=== PATIENT | male | born 1960 | race African-American/Black ===

== ENCOUNTER 2016-05-29 10:29 | Emergency (ER) | payer SELFPAY ==
[2016-05-29] MEDS ORDERED: OXYCODONE-ACETAMINOPHEN 5-325 MG TABLET PO ONE (10:46)
--- NOTE | 2016-05-29 10:46 | ER Document Report ---
ED Medical Screen (RME) - General Stated Complaint: ANKLE PAIN Notes: 55 yo male c/o right ankle pain x 6 days. no trauma. no weight bearing tolerated. + swelling. no warmth. hx/o htn TRAVEL OUTSIDE OF THE [place] IN LAST 30 DAYS: No - Related Data Allergies/Adverse Reactions: No Known Allergies Allergy (Verified 02/20/15 11:28) Past Medical History - Past Medical History Cardiac Medical History: Reports: Hx Hypertension Past Surgical History: Reports: Hx Orthopedic Surgery - right hand - Immunizations Hx Diphtheria, Pertussis, Tetanus Vaccination: Yes Physical Exam - Vital signs Vitals: Temp Pulse Resp BP Pulse Ox 98.3 F 103 H 16 122/94 H 98 05/29/16 10:41 05/29/16 10:41 05/29/16 10:41 05/29/16 10:41 05/29/16 10:41 Course - Vital Signs Vital signs: Temp Pulse Resp BP Pulse Ox 98.3 F 103 H 16 122/94 H 98 05/29/16 10:41 05/29/16 10:41 05/29/16 10:41 05/29/16 10:41 05/29/16 10:41
[2016-05-29 11:24] LABS: ABSOLUTE EOSINOPHILS # (AUTO) 0.1 10^3/uL (0.0-0.6); ABSOLUTE LYMPHOCYTES (AUTO) 2.1 10^3/uL (0.5-4.7); ABSOLUTE MONOCYTES (AUTO) 1.1 10^3/uL (0.1-1.4); ABSOLUTE NEUT (AUTO) 6.8 10^3/uL (1.7-8.2); BASOPHILS % (AUTO) 0.3 % (0-2); EOSINOPHILS % (AUTO) 1.3 % (0-6); HEMATOCRIT 41.3 % (37.9-51.0); HEMOGLOBIN 14.8 g/dL (13.5-17.0); HGB HCT DIFFERENCE 3.1; MEAN CORPUSCULAR HEMOGLOBIN 30.9 pg (27.0-33.4); MEAN CORPUSCULAR HGB CONC 35.8 g/dL (32.0-36.0); MEAN CORPUSCULAR VOLUME 86 fl (80-97); MONOCYTES % (AUTO) 10.4 % (3-13); RED BLOOD COUNT 4.78 10^6/uL (4.35-5.55); RED CELL DISTRIBUTION WIDTH 14.3 % (11.5-14.0); WHITE BLOOD COUNT 10.2 10^3/uL (4.0-10.5)
[2016-05-29] MEDS ORDERED: DIPH/PERTUSS(ACELL)/TETANUS VAC/PF 0.5 ML SYR (>=10YO) IM ONE (11:24)
--- NOTE | 2016-05-29 11:26 | ER Document Report ---
HPI - HPI Patient complains to provider of: right ankle pain Onset: Other - 6 days Onset/Duration: Persistent, Worse Quality of pain: Sharp Pain Level: 5 Context: Patient complains of right medial ankle pain and swelling that developed gradually over the past 6 days. Patient states that he had a towel covering his ankle and was using a iron (clothing iron) to provide a make shift heat pack to his ankle. Patient states that the towel slipped and he part the medial aspect of his ankle. Patient complains of mild tenderness to the burn, increased tenderness to right medial ankle. Patient additionally complains of a rash to his right foot that he has had for the past month. He should has not used any topical medications [id number] to treat this rash. He shouldn't states that the rash is pruritic. Associated Symptoms: Other. denies: Fever Exacerbated by: Standing, Movement - Right ankle pain, Walking Relieved by: Denies Similar symptoms previously: No Recently seen / treated by doctor: No - ROS ROS below otherwise negative: Yes Systems Reviewed and Negative: Yes All other systems reviewed and negative - CONSTITUTIONAL Constitutional: DENIES: Fever, Chills - RESPIRATORY Respiratory: DENIES: Coughing - GASTROINTESTINAL Gastrointestinal: DENIES: Nausea - MUSCULOSKELETAL Musculoskeletal: REPORTS: Extremity pain - Right ankle, Swelling - DERM Skin Color: Normal Skin Problems: Burn, Rash Past Medical History - General Information source: Patient - Social History Smoking Status: Current Every Day Smoker Chew tobacco use (# tins/day): No Frequency of alcohol use: None Drug Abuse: None 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 IN LAST 30 DAYS: No - HEENT HEENT: Atraumatic, Normocephalic - NECK Neck: Normal Inspection, Supple - RESPIRATORY Respiratory: Breath Sounds Normal, No Respiratory Distress O2 Sat by Pulse Oximetry: 98 - CARDIOVASCULAR Cardiovascular: Regular Rate, Regular Rhythm, No Murmur Pulses: Normal: Dorsalis pedis - BACK Back: Normal Inspection - MUSCULOSKELETAL/EXTREMETIES Musculoskeletal/Extremeties: MAEW, Tender - Patient with tenderness to feel aspect of midfoot area of right foot, Edema. negative: Eccymosis - NEURO Level of Consciousness: Awake, Alert, Appropriate Motor/Sensory: No Motor Deficit - DERM Integumentary: Warm, Dry, Rash - Scaling rash to medial aspect of right foot Course - Vital Signs Vital signs: Temp Pulse Resp BP Pulse Ox 98.3 F 103 H 16 122/94 H 98 05/29/16 10:41 05/29/16 10:41 05/29/16 10:41 05/29/16 10:41 05/29/16 10:41 - Laboratory Result Diagrams: 05/29/16 10:55 Laboratory results interpreted by me: 05/29/16 12:48 Labs- Entire Visit 05/29/16 05/29/16 10:55 10:55 WBC 10.2 RBC 4.78 Hgb 14.8 Hct 41.3 MCV 86 MCH 30.9 MCHC 35.8 RDW 14.3 H Plt Count 338 Seg Neutrophils % 67.0 Lymphocytes % 21.0 Monocytes % 10.4 Eosinophils % 1.3 Basophils % 0.3 Absolute Neutrophils 6.8 Absolute Lymphocytes 2.1 Absolute Monocytes 1.1 Absolute Eosinophils 0.1 Absolute Basophils 0.0 ESR 24 H Uric Acid 8.8 H 05/29/16 22:05 Discharge - Discharge Clinical Impression: Burn Gout attack Qualifiers: Gout site: ankle Gout etiology: unspecified cause Laterality: right Qualified Code(s): M10.9 - Gout, unspecified Tinea pedis Qualifiers: Laterality: right Qualified Code(s): B35.3 - Tinea pedis Condition: Stable Disposition: HOME, SELF-CARE Instructions: Krishna ([facility]), Soap Cleansing ([facility]), Tetanus Immunization Given ( [facility]), Oral Narcotic Medication ([facility]), Gout Diet ([facility]), Gout ([facility]), Anti- Inflammatory Medication ([facility]) Additional Instructions: Return immediately for any new or worsening symptoms Followup with your primary care provider, call tomorrow to make a followup appointment Follow up with a celery tier for any continued skin problems Eat a diet low in purine to minimize gout attacks in the future. Prescriptions: Indomethacin [Indocin 50 Mg Capsule] 50 mg PO TID PRN #15 capsule PRN Reason: Ketoconazole [Nizoral] 1 applic TP DAILY #30 cream.gm. Oxycodone HCl/Acetaminophen [Percocet 5-325 mg Tablet] 1 - 2 tab PO ASDIR PRN # 20 tablet PRN Reason: Referrals: [facility] [Provider Group] - Follow up as needed MARISOL KEITH DO [ACTIVE STAFF] - Follow up as needed [facility] [Provider Group] - Follow up tomorrow
[2016-05-29] MEDS ORDERED: INDOMETHACIN 50 MG CAPSULE PO ONE (11:57)
[2016-05-29 12:01] LABS: ERYTHROCYTE SEDIMENTATION RATE 24 mm/hr (0-20)
[2016-05-29 13:12] VITALS: BP 148/95
== END 2016-05-29 13:20 | disposition home or self-care (01) ==
LOC: ER 10:29
DX: T25.011A Burn of unspecified degree of right ankle, initial encounter (principal); X15.8XXA Contact with other hot household appliances, initial encounter; Y93.89 Activity, other specified; M10.9 Gout, unspecified; B35.3 Tinea pedis; M25.571 Pain in right ankle and joints of right foot; F17.200 Nicotine dependence, unspecified, uncomplicated; I10 Essential (primary) hypertension
CPT/HCPCS: 99283; 90471; 36415; 84550; 85025; 85652; 90715; J3490

== ENCOUNTER 2016-08-02 14:46 | Emergency (ER) | payer OTHER ==
--- NOTE | 2016-08-02 15:37 | ER Document Report ---
ED Medical Screen (RME) - General Stated Complaint: FINGER PAIN Notes: Patient states he caught his left fifth finger and a reciprocating saw today. Patient states he thinks his tetanus is up-to-date. I have greeted and performed a rapid initial assessment of this patient. A comprehensive ED assessment and evaluation of the patient, analysis of test results and completion of the medical decision making process will be conducted by additional ED providers. TRAVEL OUTSIDE OF THE [place] IN LAST 30 DAYS: No - Related Data Allergies/Adverse Reactions: No Known Allergies Allergy (Verified 08/02/16 15:35) Past Medical History - Past Medical History Cardiac Medical History: Reports: Hx Hypertension Past Surgical History: Reports: Hx Orthopedic Surgery - right hand - Immunizations Hx Diphtheria, Pertussis, Tetanus Vaccination: Yes Physical Exam - Vital signs Vitals: Temp Pulse Resp BP Pulse Ox 98.9 F 69 19 152/86 H 97 08/02/16 15:07 08/02/16 15:07 08/02/16 15:07 08/02/16 15:07 08/02/16 15:07 - Extremities Notes: Sensation intact to left fifth finger. Dressing in place, finger is very tender to touch. Course - Vital Signs Vital signs: Temp Pulse Resp BP Pulse Ox 98.9 F 69 19 152/86 H 97 08/02/16 15:07 08/02/16 15:07 08/02/16 15:07 08/02/16 15:07 08/02/16 15:07
[2016-08-02] MEDS ORDERED: IBUPROFEN 600 MG TABLET PO ONE (16:24)
[2016-08-02] MEDS ORDERED: LIDOCAINE 1% INJ-PF (10 MG/ML) 30 ML SDV INJ ONE (16:26)
--- NOTE | 2016-08-02 16:31 | ER Document Report ---
ED Hand/Wrist Injury - General Chief Complaint: Finger Injury Stated Complaint: FINGER PAIN Notes: The patient is a 56-year-old male who presents with left fifth finger pain after he cut it on a saw. He noticed bleeding from the laceration. He received a tetanus shot last year. He is right-handed. He denies numbness, tingling or any other injuries. TRAVEL OUTSIDE OF THE [place] IN LAST 30 DAYS: No - Related Data Allergies/Adverse Reactions: No Known Allergies Allergy (Verified 08/02/16 15:35) Past Medical History - General Information source: Patient - Social History Smoking Status: Never Smoker Chew tobacco use (# tins/day): No Frequency of alcohol use: None Drug Abuse: None Family History: Reviewed & Not Pertinent Patient has suicidal ideation: No Patient has homicidal ideation: No - Past Medical History Cardiac Medical History: Reports: Hx Hypertension Renal/ Medical History: Denies: Hx Peritoneal Dialysis Past Surgical History: Reports: Hx Orthopedic Surgery - right hand - Immunizations Hx Diphtheria, Pertussis, Tetanus Vaccination: Yes Review of Systems - Review of Systems Notes: REVIEW OF SYSTEMS: CONSTITUTIONAL: -fevers, -chills EENT: -eye pain, -difficulty swallowing, -nasal congestion CARDIOVASCULAR:-chest pain, -syncope. RESPIRATORY: -cough, -SOB GASTROINTESTINAL: -abdominal pain, -nausea, -vomiting, -diarrhea GENITOURINARY: -dysuria, -hematuria MUSCULOSKELETAL: -back pain, -neck pain SKIN: +left distal finger laceration HEMATOLOGIC: -easy bruising or bleeding. LYMPHATIC: -swollen, enlarged glands. NEUROLOGICAL: -altered mental status or loss of consciousness, -headache, - neurologic symptoms PSYCHIATRIC: -anxiety, -depression. ALL OTHER SYSTEMS REVIEWED AND NEGATIVE. Physical Exam - Vital signs Vitals: Temp Pulse Resp BP Pulse Ox 98.9 F 69 19 152/86 H 97 08/02/16 15:07 08/02/16 15:07 08/02/16 15:07 08/02/16 15:07 08/02/16 15:07 - Notes Notes: PHYSICAL EXAMINATION: GENERAL: Well-appearing, well-nourished and in no acute distress. HEAD: Atraumatic, normocephalic. EYES: Pupils equal round and reactive to light, extraocular movements intact, sclera anicteric, conjunctiva are normal. ENT: nares patent, oropharynx clear without exudates. Moist mucous membranes. NECK: Normal range of motion, supple without lymphadenopathy LUNGS: Breath sounds clear to auscultation bilaterally and equal. No wheezes rales or rhonchi. HEART: Regular rate and rhythm without murmurs ABDOMEN: Soft, nontender, normoactive bowel sounds. No guarding, no rebound. No masses appreciated. EXTREMITIES: Left distal finger with 2 cm laceration, brisk capillary refill. Normal range of motion, no pitting or edema. No cyanosis. NEUROLOGICAL: Cranial nerves grossly intact. Normal speech, normal gait. Normal sensory, motor, and reflex exams. PSYCH: Normal mood, normal affect. SKIN: 2 cm laceration over left 5th distal finger. Course - Re-evaluation Re-evalutation: No fractures on x-ray. Laceration repaired tetanus up-to-date. Given return precautions and he understands. He will need removal of the sutures in 5 days. - Vital Signs Vital signs: Temp Pulse Resp BP Pulse Ox 98.6 F 92 20 121/83 98 08/02/16 17:11 08/02/16 17:11 08/02/16 17:11 08/02/16 17:11 08/02/16 17:11 Procedures - Laceration/Wound Repair Left 5th digit Time completed: 17:00 Wound length (cm): 2 Wound's Depth, Shape: Into muscle, Linear Laceration pre-procedure: Sterile PPE donned, Sterile drapes applied, Shur- Clens applied Anesthetic type: 1% Lidocaine Volume Anesthetic (mLs): 3 Wound explored: Clean Irrigated w/ Saline (mLs): 1,000 Wound Repaired With: Sutures Suture Size/Type: 6:0, Prolene Number of Sutures: 3 Layer Closure?: No Post-procedure wound care: Sterile dressing applied Post-procedure NV exam normal: Yes Complications: No Discharge - Discharge Clinical Impression: Finger laceration Qualifiers: Encounter type: initial encounter Qualified Code(s): S61.219A - Laceration without foreign body of unspecified finger without damage to nail, initial encounter Condition: Good Disposition: HOME, SELF-CARE Additional Instructions: LACERATION CARE: Your laceration has been sutured to keep the skin edges aligned during healing. The time of suture removal depends on the nature and location of your cut. Please follow the care instructions the doctor has outlined for you and return for further care, according to the schedule you've been given. Keep the wound and dressing clean. Unless you were told otherwise, you may shower daily, blotting the wound dry with a clean, unused towel. At other times, If the dressing gets wet or blood soaked, remove it and blot the wound dry, then reapply a new dressing. Unless you were instructed otherwise, dressings should be changed at least daily. If any signs of infection occur (swelling, redness, drainage, increasing tenderness, red streaks, tender lumps in the armpit or groin above the laceration, or fever), see the doctor immediately. SOAP CLEANSING: Gently wash the wound daily using a mild soap (like Ivory, Phisoderm, Neutrogena). Use warm water, rubbing gently until all debris, ooze, and crusting have been washed from the wound. Allow to dry briefly (about 10 minutes) after cleaning. Repeat this cleansing at least three times a day for the first two days and then once or twice a day. FOLLOW-UP CARE: Please return in 2 days for an infection check and dressing change. Your sutures should be removed in 5-7 days. To facilitate a timely removal of your sutures, you may return to the Emergency Department at [facility]. You do not need to call for an appointment, but the best time to come in for suture removal is early in the morning. If you have been referred to another physician for follow-up care, call that physicians office for an appointment as you were instructed. If you experience a significant change in your laceration, or if you are concerned there may be an infection (swelling, redness, drainage, increasing tenderness, red streaks, tender lumps in the armpit or groin above the laceration, or fever) , return to the Emergency Department immediately re-evaluation.
[2016-08-02 17:12] VITALS: BP 121/83
== END 2016-08-02 17:13 | disposition home or self-care (01) ==
LOC: ER 14:46
PROC: 0HQGXZZ Repair Left Hand Skin, External Approach (ICD-10-PCS; principal; 2016-08-02)
DX: S61.217A Laceration without foreign body of left little finger without damage to nail, initial encounter (principal); W29.8XXA Contact with other powered hand tools and household machinery, initial encounter; I10 Essential (primary) hypertension
CPT/HCPCS: 99283; 73130; 12001; J3490

== ENCOUNTER → 2016-08-12 | Outpatient (CLI) | payer OTHER ==
[2016-08-12 15:34] LABS: ABSOLUTE EOSINOPHILS # (AUTO) 0.3 10^3/uL (0.0-0.6); ABSOLUTE LYMPHOCYTES (AUTO) 2.2 10^3/uL (0.5-4.7); ABSOLUTE MONOCYTES (AUTO) 0.7 10^3/uL (0.1-1.4); ABSOLUTE NEUT (AUTO) 3.8 10^3/uL (1.7-8.2); BASOPHILS % (AUTO) 0.5 % (0-2); EOSINOPHILS % (AUTO) 3.6 % (0-6); HEMATOCRIT 41.5 % (37.9-51.0); HEMOGLOBIN 14.8 g/dL (13.5-17.0); HGB HCT DIFFERENCE 2.9; LYMPHOCYTES % (AUTO) 31.6 % (13-45); MEAN CORPUSCULAR HEMOGLOBIN 30.7 pg (27.0-33.4); MEAN CORPUSCULAR HGB CONC 35.6 g/dL (32.0-36.0); MEAN CORPUSCULAR VOLUME 86 fl (80-97); MONOCYTES % (AUTO) 9.6 % (3-13); RED CELL DISTRIBUTION WIDTH 15.4 % (11.5-14.0); SEGMENTED NEUTROPHILS % (AUTO) 54.7 % (42-78); WHITE BLOOD COUNT 6.9 10^3/uL (4.0-10.5)
[2016-08-12 15:59] LABS: ALANINE AMINOTRANSFERASE 36 U/L (21-72); ALBUMIN 4.5 g/dL (3.5-5.0); ALKALINE PHOSPHATASE 68 U/L (38-126); ANION GAP 13 (5-19); ASPARTATE AMINO TRANSFERASE 27 U/L (17-59); BILIRUBIN,DIRECT 0.3 mg/dL (0.0-0.4); BLOOD UREA NITROGEN 14 mg/dL (7-20); CARBON DIOXIDE 25 mmol/L (22-30); CHLORIDE 105 mmol/L (98-107); CHOLESTEROL 193.29 mg/dL (0-200); CREATINE KINASE 180 U/L (55-170); CREATININE RESULT 1.15 mg/dL (0.52-1.25); Direct HDL 49 mg/dL (>40); GLUCOSE 94 mg/dL (75-110); POTASSIUM 4.5 mmol/L (3.6-5.0); SODIUM 142.9 mmol/L (137-145); TOTAL PROTEIN 7.9 g/dL (6.3-8.2); TRIGLYCERIDES 46 mg/dL (<150)
[2016-08-12 16:11] LABS: DIRECT LDL 121 mg/dL (<100)
== END ==
LOC: CCC 14:53
DX: R07.9 Chest pain, unspecified (principal); I10 Essential (primary) hypertension; M25.512 Pain in left shoulder
CPT/HCPCS: 36415; 71020; 80053; 80061; 82550; 83036; 84443; 85025

== ENCOUNTER 2016-10-26 17:57 | Observation (INO) | payer OTHER ==
[2016-10-26] MEDS ORDERED: PIPERACILLIN/TAZOBACTAM 3.375 GM VIAL IV ONE ×2 (19:11→23:17)
--- NOTE | 2016-10-26 19:18 | ER Document Report ---
ED Extremity Problem, Lower - General Mode of Arrival: Ambulatory Information source: Patient TRAVEL OUTSIDE OF THE [place] IN LAST 30 DAYS: No - HPI Patient complains to provider of: Injury, Pain, Swelling Location: Foot Occurred: Yesterday Where: Public place Onset/Duration: Gradual Quality of pain: Burning, Sharp Severity: Severe Pain Level: 5 Context: Wearing shoes Recent injury: Yes Associated symptoms: Painful ambulation, Other - Stepped on a nail in a piece of plywood through his shoes Exacerbated by: Movement, Walking Relieved by: Other - States she has tried Epsom salt peroxide and Tylenol with no relief <EMMANUEL ERAZO - Last Filed: 10/26/16 21:06> <MICKI KAUR - Last Filed: 10/26/16 21:25> - General Chief Complaint: Puncture Wound to Foot Stated Complaint: FOOT INJURY Time Seen by Provider: 10/26/16 18:16 Notes: 56-year-old male presents to ED to ED for complaint of left foot pain after stepping on a nail yesterday and plywood. He states he had rubber soled shoes on at the time. He states he did not claim his foot for 2-3 hours but then he cleaned it with peroxide and Epsom salt. Today his foot is very painful and red. He states he has gout in the right foot but not in the left foot. ( EMMANUEL ERAZO) - Related Data Allergies/Adverse Reactions: No Known Allergies Allergy (Verified 10/26/16 18:00) Past Medical History - General Information source: Patient - Social History Smoking Status: Former Smoker Cigarette use (# per day): No Chew tobacco use (# tins/day): No Smoking Education Provided: No Frequency of alcohol use: Social Drug Abuse: None Family History: Reviewed & Not Pertinent Patient has suicidal ideation: No Patient has homicidal ideation: No - Past Medical History Cardiac Medical History: Reports: Hx Hypertension Pulmonary Medical History: Reports: None EENT Medical History: Reports: None Neurological Medical History: Reports: Hx Cerebrovascular Accident Endocrine Medical History: Reports: None Renal/ Medical History: Reports: None Malignancy Medical History: Reports None GI Medical History: Reports: None Musculoskeltal Medical History: Reports Hx Arthritis, Reports Hx Gout Skin Medical History: Reports None Psychiatric Medical History: Reports: Hx Post Traumatic Stress Disorder Traumatic Medical History: Reports: Hx Fractures - foot Infectious Medical History: Reports: None Past Surgical History: Reports: Hx Orthopedic Surgery - right hand - Immunizations Immunizations up to date: Yes Hx Diphtheria, Pertussis, Tetanus Vaccination: Yes <EMMANUEL ERAZO - Last Filed: 10/26/16 21:06> Review of Systems - Review of Systems Constitutional: No symptoms reported EENT: No symptoms reported Cardiovascular: No symptoms reported Respiratory: No symptoms reported Gastrointestinal: No symptoms reported Genitourinary: No symptoms reported Male Genitourinary: No symptoms reported Musculoskeletal: Other - left foot pain swelling after stepping on a nail yesterday. Skin: Other - red swelling painful left foot after stepping on a nail yesterday Hematologic/Lymphatic: No symptoms reported Neurological/Psychological: No symptoms reported -: Yes All other systems reviewed and negative <EMMANUEL ERAZO - Last Filed: 10/26/16 21:06> Physical Exam - Vital signs Interpretation: Normal - General General appearance: Appears well, Alert - HEENT Head: Normocephalic, Atraumatic Eyes: Normal Pupils: PERRL - Respiratory Respiratory status: No respiratory distress Chest status: Nontender Breath sounds: Normal Chest palpation: Normal - Cardiovascular Rhythm: Regular Heart sounds: Normal auscultation Murmur: No - Abdominal Inspection: Normal Distension: No distension Bowel sounds: Normal Tenderness: Nontender Organomegaly: No organomegaly - Back Back: Normal, Nontender - Extremities General upper extremity: Normal inspection, Nontender, Normal color, Normal ROM , Normal temperature General lower extremity: Normal ROM Foot: Tender, No evidence of FB, Other - tender warm swollen left foot from about [facility] down the foot to the toes after stepping on a nail yesterday small puncture wound plantar surface. No: Unable to bear weight - Neurological Neuro grossly intact: Yes Cognition: Normal Orientation: AAOx4 Radha Coma Scale Eye Opening: Spontaneous [place] Coma Scale Verbal: Oriented [place] Coma Scale Motor: Obeys Commands [place] Coma Scale Total: 15 Speech: Normal Motor strength normal: LUE, RUE, LLE, RLE Sensory: Normal - Psychological Associated symptoms: Normal affect, Normal mood - Skin Skin Temperature: Warm Skin Moisture: Dry Skin Color: Normal <EMMANUEL ERAZO - Last Filed: 10/26/16 21:06> Course - Laboratory Result Diagrams: 10/26/16 19:25 10/26/16 19:25 - Diagnostic Test Radiology reviewed: Image reviewed, Reports reviewed <EMMANUEL ERAZO - Last Filed: 10/26/16 21:06> - Laboratory Result Diagrams: 10/26/16 19:25 10/26/16 19:25 <MICKI KAUR - Last Filed: 10/26/16 21:25> - Re-evaluation Re-evalutation: 10/26/16 20:[address] Micki Kaur at 1925 for this infected left foot. She requested a CBC, chemistry, CRP, sed rate, and blood cultures be drawn foot xray to be completed and. patient to get a 3.75 g of Zosyn. Results discussed with Dr. Kaur and she will come and examined the patient. 10/26/16 20:[address] Kaur he requested that be consulted for admission for a foot infection. Dr. De La Vega was consulted. Patient to be admitted observation. (EMMANUEL ERAZO) 10/26/16 21:24 I examined this pateint during his ER stay and agree with IV antibiotics and ortho consultation for admission for cellulitis and puncture wound of the foot. (MICKI KAUR) - Vital Signs Vital signs: Temp Pulse Resp BP Pulse Ox 98.6 F 101 H 16 137/94 H 96 10/26/16 18:00 10/26/16 18:00 10/26/16 18:00 10/26/16 18:00 10/26/16 18:00 - Laboratory Laboratory results interpreted by me: 10/26/16 10/26/16 19:25 19:25 Hgb 13.4 L RDW 14.5 H C-Reactive Protein 44.3 H Discharge - Discharge Admitting Provider: Ceferino Unit Admitted: Surgical Floor <EMMANUEL ERAZO - Last Filed: 10/26/16 21:06> <MICKI KAUR - Last Filed: 10/26/16 21:25> - Discharge Clinical Impression: Puncture wound of left foot excluding toes with infection Qualifiers: Encounter type: initial encounter Qualified Code(s): S91.332A - Puncture wound without foreign body, left foot, initial encounter Disposition: ADMITTED OBSERVATION
[2016-10-26 19:33] LABS: ABSOLUTE EOSINOPHILS # (AUTO) 0.2 10^3/uL (0.0-0.6); ABSOLUTE LYMPHOCYTES (AUTO) 2.5 10^3/uL (0.5-4.7); ABSOLUTE MONOCYTES (AUTO) 1.2 10^3/uL (0.1-1.4); ABSOLUTE NEUT (AUTO) 5.9 10^3/uL (1.7-8.2); BASOPHILS % (AUTO) 0.4 % (0-2); EOSINOPHILS % (AUTO) 1.9 % (0-6); HEMATOCRIT 39.3 % (37.9-51.0); HEMOGLOBIN 13.4 g/dL (13.5-17.0); HGB HCT DIFFERENCE 0.9; LYMPHOCYTES % (AUTO) 25.3 % (13-45); MEAN CORPUSCULAR HEMOGLOBIN 30.6 pg (27.0-33.4); MEAN CORPUSCULAR HGB CONC 34.1 g/dL (32.0-36.0); MEAN CORPUSCULAR VOLUME 90 fl (80-97); MONOCYTES % (AUTO) 12.2 % (3-13); RED BLOOD COUNT 4.37 10^6/uL (4.35-5.55); RED CELL DISTRIBUTION WIDTH 14.5 % (11.5-14.0); SEGMENTED NEUTROPHILS % (AUTO) 60.2 % (42-78); WHITE BLOOD COUNT 9.7 10^3/uL (4.0-10.5)
[2016-10-26 19:47] LABS: ALANINE AMINOTRANSFERASE 40 U/L (21-72); ALBUMIN 4.4 g/dL (3.5-5.0); ALKALINE PHOSPHATASE 59 U/L (38-126); ANION GAP 14 (5-19); ASPARTATE AMINO TRANSFERASE 28 U/L (17-59); BILIRUBIN,DIRECT 0.2 mg/dL (0.0-0.4); BILIRUBIN,TOTAL 0.9 mg/dL (0.2-1.3); BLOOD UREA NITROGEN 10 mg/dL (7-20); C-REACTIVE PROTEIN 44.3 mg/L (<10.0); CALCIUM 9.3 mg/dL (8.4-10.2); CARBON DIOXIDE 23 mmol/L (22-30); CHLORIDE 102 mmol/L (98-107); CREATININE RESULT 1.01 mg/dL (0.52-1.25); GLUCOSE 108 mg/dL (75-110); POTASSIUM 3.8 mmol/L (3.6-5.0); TOTAL PROTEIN 7.8 g/dL (6.3-8.2); URIC ACID 8.5 mg/dL (3.5-8.5)
--- NOTE | 2016-10-26 19:47 | RADIOLOGY REPORT (SQ) ---
EXAM DESCRIPTION: FOOT LEFT COMPLETE COMPLETED DATE/TIME: 10/26/2016 7:31 pm REASON FOR STUDY: stepped on nail foot infection COMPARISON: None. NUMBER OF VIEWS: Three views. TECHNIQUE: AP, lateral and oblique radiographic images acquired of the left foot. LIMITATIONS: None. FINDINGS: MINERALIZATION: Normal. BONES: In no acute fracture or dislocation. Smoothly contoured focal periosteal thickening involving the 3rd metatarsal diaphysis is consistent with healing stress reaction. The appearance of an osseo us excrescence involving the lateral aspect of the 1st metatarsal diaphysis may represent overlapping shadows of vascular calcifications demonstrated on lateral imaging. Incidental note is made of gallo ux valgus malalignment. JOINTS: Great toe metatarsophalangeal degenerative change. SOFT TISSUES: Diffuse atherosclerotic vascular calcifications a pattern consistent with [place]cke[place] me dial sclerosis. No soft tissue swelling. No foreign body. OTHER: No other significant finding. IMPRESSION: The appearance of 1st metatarsal diaphyseal osseous excrescence is favored to represent overlapping shadows rather than periosteal reaction in the setting of reported foot infection. Curtis h focal periosteal thickening involving the 3rd metatarsal diaphysis is in a location and has an appe arance consistent with healing stress reaction. [place] medial sclerosis. No evidence of soft ti ssue gas. TECHNICAL DOCUMENTATION: JOB ID: [id number] [employer]- All Rights Reserved
[2016-10-26 20:07] LABS: ERYTHROCYTE SEDIMENTATION RATE 16 mm/hr (0-20)
[2016-10-26] MEDS ORDERED: INDOMETHACIN 50 MG CAPSULE PO PRN (21:08)
[2016-10-26] MEDS ORDERED: PIPERACILLIN/TAZOBACTAM 3.375 GM VIAL IV SCH (21:15)
[2016-10-26] MEDS: HEPARIN SOD (PORCINE) 5,000 UNIT/ML 1 ML SYRINGE SUBCUT SCH (22:38)
[2016-10-26] MEDS: METHOCARBAMOL 500 MG TABLET PO SCH (22:38)
[2016-10-26] MEDS: PIPERACILLIN SODIUM/TAZOBACTAM 3.375 GM in NORMAL SALINE 100 ML IV SCH (23:53)
[2016-10-27] MEDS ORDERED: PIPERACILLIN/TAZOBACTAM 3.375 GM VIAL IV PRN
[2016-10-27] MEDS ORDERED: RINGERS SOLUTION,LACTATED 1,000 ML IV PRN (00:01)
[2016-10-27] MEDS ORDERED: INDOMETHACIN 50 MG CAPSULE ONE (00:17)
[2016-10-27] MEDS: PIPERACILLIN SODIUM/TAZOBACTAM 3.375 GM in NORMAL SALINE 100 ML IV SCH ×2 (05:14→12:00)
[2016-10-27] MEDS: HEPARIN SOD (PORCINE) 5,000 UNIT/ML 1 ML SYRINGE SUBCUT SCH (05:14)
[2016-10-27] MEDS: METHOCARBAMOL 500 MG TABLET PO SCH (05:14)
[2016-10-27 06:29] LABS: ABSOLUTE BASOPHILS # (AUTO) 0.1 10^3/uL (0.0-0.2); ABSOLUTE EOSINOPHILS # (AUTO) 0.2 10^3/uL (0.0-0.6); ABSOLUTE LYMPHOCYTES (AUTO) 2.2 10^3/uL (0.5-4.7); ABSOLUTE NEUT (AUTO) 3.9 10^3/uL (1.7-8.2); BASOPHILS % (AUTO) 0.8 % (0-2); EOSINOPHILS % (AUTO) 2.4 % (0-6); HEMATOCRIT 34.5 % (37.9-51.0); HEMOGLOBIN 11.8 g/dL (13.5-17.0); HGB HCT DIFFERENCE 0.9; LYMPHOCYTES % (AUTO) 30.3 % (13-45); MEAN CORPUSCULAR HEMOGLOBIN 30.6 pg (27.0-33.4); MEAN CORPUSCULAR HGB CONC 34.1 g/dL (32.0-36.0); MEAN CORPUSCULAR VOLUME 90 fl (80-97); MONOCYTES % (AUTO) 13.1 % (3-13); RED BLOOD COUNT 3.85 10^6/uL (4.35-5.55); RED CELL DISTRIBUTION WIDTH 14.7 % (11.5-14.0); SEGMENTED NEUTROPHILS % (AUTO) 53.4 % (42-78); WHITE BLOOD COUNT 7.3 10^3/uL (4.0-10.5)
--- NOTE | 2016-10-27 08:12 | PDOC H&P ---
History of Present Illness Admission Date/PCP: 10/26/16 21:05 Patient complains of: Foot pain History of Present Illness: CHARLY ALVAREZ is a 56 year old male 56-year-old male who sustained an injury to his left foot when he stepped on a nail on 10/25/16. He noticed increasing pain and redness that began within 24 hours of his injury. His tetanus was up-to-date he was seen and evaluated in the emergency room. According to the emergency room examination of his erythema along the puncture wound. He continues to have discomfort and difficulty with ambulation but does note some improvement overnight. Denies numbness or tingling. Pain /10. Past Medical History Cardiac Medical History: Reports: Hypertension Pulmonary Medical History: Reports: None EENT Medical History: Reports: None Endocrine Medical History: Reports: None Renal/ Medical History: Reports: None Malignancy Medical History: Reports: None GI Medical History: Reports: None Musculoskeltal Medical History: Reports: Arthritis, Gout Skin Medical History: Reports: None Psychiatric Medical History: Reports: Post Traumatic Stress Disorder Infectious Medical History: Reports: None Past Surgical History Past Surgical History: Reports: Orthopedic Surgery - right hand Social History Smoking Status: Never Smoker Drugs: None Family History Family History: Reviewed & Not Pertinent Parental Family History Reviewed: No Children Family History Reviewed: No Sibling(s) Family History Reviewed.: No Medication/Allergy Home Medications: Indomethacin [Indocin 50 mg Capsule] 50 mg PO TID PRN #15 capsule 05/29/16 Ketoconazole [Nizoral] 1 applic TP DAILY #30 cream.gm. 05/29/16 Ciprofloxacin HCl [Cipro 500 mg Tablet] 500 mg PO BID #20 tablet 10/27/16 Oxycodone HCl/Acetaminophen [Percocet 5-325 mg Tablet] 1 - 2 tab PO ASDIR PRN # 30 tablet 10/27/16 Allergies/Adverse Reactions: No Known Allergies Allergy (Verified 10/26/16 18:00) Review of Systems All systems: as per PMH Constitutional: ABSENT: chills, fever(s), headache(s), weight gain, weight loss Eyes: ABSENT: visual disturbances Ears: ABSENT: hearing changes Cardiovascular: ABSENT: chest pain, dyspnea on exertion, edema, orthropnea, palpitations Respiratory: ABSENT: cough, hemoptysis Gastrointestinal: ABSENT: abdominal pain, constipation, diarrhea, hematemesis, hematochezia, nausea, vomiting Genitourinary: ABSENT: dysuria, hematuria Musculoskeletal: PRESENT: as per HPI Integumentary: ABSENT: rash, wounds Neurological: ABSENT: abnormal gait, abnormal speech, confusion, dizziness, focal weakness, syncope Psychiatric: ABSENT: anxiety, depression, homidical ideation, suicidal ideation Endocrine: ABSENT: cold intolerance, heat intolerance, menstrual abnormalities, polydipsia, polyuria Hematologic/Lymphatic: ABSENT: easy bleeding, easy bruising, lymphadenopathy Physical Exam Vital Signs: Temp Pulse Resp BP Pulse Ox 98.6 F 81 17 144/82 H 100 10/26/16 23:05 10/26/16 23:05 10/26/16 23:05 10/26/16 23:05 10/26/16 23:05 Intake & Output 10/26/16 10/27/16 10/28/16 06:59 06:59 06:59 Intake Total 479 Output Total 0 Balance 479 Weight 88.1 kg General appearance: PRESENT: no acute distress, cooperative Head exam: PRESENT: atraumatic, normocephalic Eye exam: PRESENT: conjunctiva pink, EOMI, PERRLA. ABSENT: scleral icterus Ear exam: PRESENT: normal external ear exam Mouth exam: PRESENT: moist, tongue midline Neck exam: PRESENT: full ROM. ABSENT: carotid bruit, JVD, lymphadenopathy, thyromegaly Respiratory exam: PRESENT: unlabored Cardiovascular exam: PRESENT: RRR. ABSENT: diastolic murmur, rubs, systolic murmur Pulses: PRESENT: normal dorsalis pedis pul, +2 pedal pulses bilateral Vascular exam: PRESENT: normal capillary refill GI/Abdominal exam: PRESENT: normal bowel sounds, soft. ABSENT: distended, guarding, mass, organolmegaly, rebound, tenderness Rectal exam: PRESENT: deferred Musculoskeletal exam: PRESENT: other - Left foot: Patient has a small puncture wound along the plantar aspect of the foot between the level of the first and second metatarsals. There is no palpable fluctuance. No evidence of erythema. No drainage. Intact flexion-extension of the toes without discomfort. No sensory deficits. Does have tenderness with firm deep palpation. Neurological exam: PRESENT: alert, awake, oriented to person, oriented to place , oriented to time, oriented to situation, CN II-XII grossly intact. ABSENT: motor sensory deficit Psychiatric exam: PRESENT: appropriate affect, normal mood. ABSENT: homicidal ideation, suicidal ideation Skin exam: PRESENT: dry, intact, warm. ABSENT: cyanosis, rash Results Laboratory Results: 10/27/16 05:59 10/27/16 05:59 WBC 7.3 RBC 3.85 L Hgb 11.8 L Hct 34.5 L MCV 90 MCH 30.6 MCHC 34.1 RDW 14.7 H Plt Count 268 Seg Neutrophils % 53.4 Lymphocytes % 30.3 Monocytes % 13.1 H Eosinophils % 2.4 Basophils % 0.8 Absolute Neutrophils 3.9 Absolute Lymphocytes 2.2 Absolute Monocytes 1.0 Absolute Eosinophils 0.2 Absolute Basophils 0.1 Impressions: Foot X-Ray 10/26/16 19:12 IMPRESSION: The appearance of 1st metatarsal diaphyseal osseous excrescence is favored to represent overlapping shadows rather than periosteal reaction in the setting of reported foot infection. Smooth focal periosteal thickening involving the 3rd metatarsal diaphysis is in a location and has an appearance consistent with healing stress reaction. Monckeberg medial sclerosis. No evidence of soft tissue gas. Assessment & Plan - Diagnosis (1) Puncture wound of left foot excluding toes with infection Qualifiers: Encounter type: initial encounter Qualified Code(s): S91.332A - Puncture wound without foreign body, left foot, initial encounter; L08.9 - Local infection of the skin and subcutaneous tissue, unspecified Is this a current diagnosis for this admission?: YesPlan: Given the patient's findings on examination I do not feel he requires operative intervention. After reviewing the emergency room physician notes with it was erythematous has resolved with his current antibiotic regimen. At this point I feel the majority of his discomfort is likely secondary to inflammatory response and trauma. Thus we will send him home on Cipro to cover for possible Pseudomonas given the nature of his injury. The patient's symptoms do not improve or worsen he will follow-up at that time. He will receive his additional doses of antibiotics today and be discharged in the afternoon.
[2016-10-27] MEDS ORDERED: (PENDING PHARMACY ID) (Ketoconazole [Nizoral] 1 APPLIC) TP SCH (10:00)
[2016-10-27 12:07] VITALS: BP 121/73
--- NOTE | 2016-10-29 10:36 | PDOC DISCHARGE SUMMARY ---
General - Admit/Disc Date/PCP Admission Date/Primary Care Provider: 10/26/16 21:05 Discharge Date: 10/27/16 - Discharge Diagnosis (1) Puncture wound of left foot excluding toes with infection Is this a current diagnosis for this admission?: Yes - Additional Information Discharge Diet: As Tolerated Discharge Activity: Activity As Tolerated Home Medications: No Home Medications 10/27/16 History of Present Illness History of Present Illness: CHARLY ALVAREZ is a 56 year old male 56-year-old male who sustained an injury to his left foot when he stepped on a nail on 10/25/16. He noticed increasing pain and redness that began within 24 hours of his injury. His tetanus was up-to-date he was seen and evaluated in the emergency room. According to the emergency room examination of his erythema along the puncture wound. He continues to have discomfort and difficulty with ambulation but does note some improvement overnight. Denies numbness or tingling. Pain 4/10. Hospital Course Hospital Course: He was admitted for observation overnight. He received IV antibiotics as redness and swelling notably improved during this time. And thus I found the patient orthopedically stable for discharge to home. Physical Exam Vital Signs: Temp Pulse Resp BP Pulse Ox 98.1 F 65 16 121/73 98 10/27/16 13:01 10/27/16 13:01 10/27/16 13:01 10/27/16 13:01 10/27/16 13:01 Intake & Output 10/28/16 10/29/16 10/30/16 06:59 06:59 06:59 Intake Total 705 Balance 705 General appearance: PRESENT: no acute distress, well-developed, well-nourished Head exam: PRESENT: atraumatic, normocephalic Eye exam: PRESENT: conjunctiva pink, EOMI, PERRLA. ABSENT: scleral icterus Ear exam: PRESENT: normal external ear exam Mouth exam: PRESENT: moist, tongue midline Neck exam: PRESENT: full ROM. ABSENT: carotid bruit, JVD, lymphadenopathy, thyromegaly Cardiovascular exam: PRESENT: RRR. ABSENT: diastolic murmur, rubs, systolic murmur Pulses: PRESENT: normal dorsalis pedis pul, +2 pedal pulses bilateral Vascular exam: PRESENT: normal capillary refill GI/Abdominal exam: PRESENT: normal bowel sounds, soft. ABSENT: distended, guarding, mass, organolmegaly, rebound, tenderness Rectal exam: PRESENT: deferred Musculoskeletal exam: PRESENT: other - Left foot: Patient has a small puncture wound along the plantar aspect of the foot between the level of the first and second metatarsals. There is no palpable fluctuance. No evidence of erythema. No drainage. Intact flexion-extension of the toes without discomfort. No sensory deficits. Does have tenderness with firm deep palpation. Neurological exam: PRESENT: alert, awake, oriented to person, oriented to place , oriented to time, oriented to situation, CN II-XII grossly intact. ABSENT: motor sensory deficit Psychiatric exam: PRESENT: appropriate affect, normal mood. ABSENT: homicidal ideation, suicidal ideation Skin exam: PRESENT: dry, intact, warm. ABSENT: cyanosis, rash Results Laboratory Results: 10/27/16 05:59 Impressions: Foot X-Ray 10/26/16 19:12 IMPRESSION: The appearance of 1st metatarsal diaphyseal osseous excrescence is favored to represent overlapping shadows rather than periosteal reaction in the setting of reported foot infection. Smooth focal periosteal thickening involving the 3rd metatarsal diaphysis is in a location and has an appearance consistent with healing stress reaction. Monckeberg medial sclerosis. No evidence of soft tissue gas. Plan Discharge Plan: Given the patient's findings on examination I do not feel he requires operative intervention. After reviewing the emergency room physician notes with it was erythematous has resolved with his current antibiotic regimen. At this point I feel the majority of his discomfort is likely secondary to inflammatory response and trauma. Thus we will send him home on Cipro to cover for possible Pseudomonas given the nature of his injury. The patient's symptoms do not improve or worsen he will follow-up at that time. He will receive his additional doses of antibiotics today and be discharged in the afternoon.
== END 2016-10-27 15:34 | disposition home or self-care (01) ==
LOC: ER 17:57 → EH 21:05 → UNDOADMOB 21:15 → EH 23:04 → 4W 23:04
DX: S91.332A Puncture wound without foreign body, left foot, initial encounter (principal); L08.9 Local infection of the skin and subcutaneous tissue, unspecified; W45.0XXA Nail entering through skin, initial encounter; Y92.89 Other specified places as the place of occurrence of the external cause; M19.90 Unspecified osteoarthritis, unspecified site; M10.9 Gout, unspecified; Z79.1 Long term (current) use of non-steroidal anti-inflammatories (NSAID); Z87.891 Personal history of nicotine dependence; Z87.81 Personal history of (healed) traumatic fracture
CPT/HCPCS: 99284; 96372; 96365; 36415 ×2; 87040; 84550; 85025 ×2; 85652; 86140; 80053; 73630; G0378 ×3; J1644 ×2; J3490; J7120; J2543 ×2

== ENCOUNTER 2017-05-12 02:50 | Emergency (ER) | payer OTHER ==
[2017-05-12 02:59] VITALS: BP 143/93
[2017-05-12] MEDS ORDERED: INDOMETHACIN 50 MG CAPSULE PO ONE (03:20)
[2017-05-12] MEDS ORDERED: COLCHICINE 0.6 MG TABLET PO ONE ×2 (03:20→03:28)
[2017-05-12] MEDS ORDERED: CEPHALEXIN 500 MG CAPSULE PO ONE (03:28)
--- NOTE | 2017-05-12 03:34 | ER Document Report ---
ED General - General Chief Complaint: Foot Pain Stated Complaint: RIGHT FOOT PAIN Time Seen by Provider: 05/12/17 03:09 Notes: Patient is a 56-year-old male who presents with complaint of pain in the right foot. He also has a bit of redness there. Symptoms started approximately 12- 24 hours ago. He initially tells me he has a history of gout and this feels just like gout. He said he had about 6 months ago. He denies any fevers. No vomiting. He does not he is not diabetic. No recent injuries to the foot. No other complaints at this time. TRAVEL OUTSIDE OF THE [place] IN LAST 30 DAYS: No - Related Data Allergies/Adverse Reactions: No Known Allergies Allergy (Verified 05/12/17 02:53) Past Medical History - Social History Smoking Status: Unknown if Ever Smoked Frequency of alcohol use: None Drug Abuse: None Family History: Reviewed & Not Pertinent - Past Medical History Cardiac Medical History: Reports: Hx Hypertension Neurological Medical History: Reports: Hx Cerebrovascular Accident Renal/ Medical History: Denies: Hx Peritoneal Dialysis Musculoskeltal Medical History: Reports Hx Arthritis, Reports Hx Gout Psychiatric Medical History: Reports: Hx Post Traumatic Stress Disorder Traumatic Medical History: Reports: Hx Fractures - foot Past Surgical History: Reports: Hx Orthopedic Surgery - right hand - Immunizations Immunizations up to date: Yes Hx Diphtheria, Pertussis, Tetanus Vaccination: Yes Review of Systems - Review of Systems Notes: My Normal Review Basic REVIEW OF SYSTEMS: CONSTITUTIONAL : Denies fever, chills, or sweats. Denies recent illness. MUSCULOSKELETAL: Pain to top of right foot. SKIN: Denies rash or skin lesions. NEUROLOGICAL: Denies sensory or motor loss. ALL OTHER SYSTEMS REVIEWED AND NEGATIVE. Physical Exam - Vital signs Vitals: Temp Pulse Resp BP Pulse Ox 99.0 F 94 16 143/93 H 98 05/12/17 02:57 05/12/17 02:57 05/12/17 02:57 05/12/17 02:57 05/12/17 02:57 - Notes Notes: General Appearance: Well nourished, alert, cooperative, no acute distress, mild obvious discomfort. Vitals: reviewed, See vital signs table. Extremities: strength 5/5 in all extremities, good pulses in all extremities, on exam patient does have some redness warmth of the dorsum of the foot. Patient says this started between the first and second toes and then migrated up the foot. There is no redness into the ankle itself or into the lower leg. He does have some tenderness to palpation over the dorsum of the foot and also near the first and second MTPs. No abscess formation or swelling. Skin: warm, dry, appropriate color, no rash Neuro: speech clear, oriented x 3, normal affect, responds appropriately to questions. Course - Re-evaluation Re-evalutation: 05/12/17 06:07 On exam patient's findings could be consistent with either gout or cellulitis. I did review the patient's records from me he was here 6 months ago. Despite him saying that he was told he has gout all the notes from Dr. De La Vega suggests that he has cellulitis in his symptoms and resolved with antibiotics. I asked the patient about this and he says that he actually had dealt on one foot and cellulitis on the other. He notes that the redness and swelling last time did resolve with antibiotics. The patient has both a history of gout and cellulitis and his exam is really not able to distinguish between the 2 I will treat him for both. I will place him on Keflex. Also place him on indomethacin. I did give him his dosages of colchicine here. I informed him he must have a low threshold to return to ER if he has spreading redness warmth in his foot worsening pain, or if he has fevers. Encouraged him follow-up with his doctor this week for reevaluation. Patient agrees with plan will be discharged home. Dictation of this chart was performed using voice recognition software; therefore, there may be some unintended grammatical errors. - Vital Signs Vital signs: Temp Pulse Resp BP Pulse Ox 99.0 F 94 16 143/93 H 98 05/12/17 02:57 05/12/17 02:57 05/12/17 02:57 05/12/17 02:57 05/12/17 02:57 Discharge - Discharge Clinical Impression: Foot pain, right Condition: Good Disposition: HOME, SELF-CARE Additional Instructions: The pain in your foot is either being caused by gout or cellulitis. You have a history of both. We are covering you for both based on physical exam which is consistent with either one. Keflex is the antibiotic you will be placed on. You have been given a dose of colchicine here in the ER. We gave you a second pill that you will take 1 hour after you leave the ER. I have also placed you on indomethacin. This is a pain medication that you take for your foot. Please take it with food. Please return to the ER immediately if you have fevers, spreading redness, increased swelling in her foot, or if you feel that you' re worsening any way. Please follow-up with your doctor tomorrow or Friday for reevaluation. [facility] is open from 9 AM to 5 PM today. Prescriptions: Cephalexin Monohydrate [Keflex 500 mg Capsule] 500 mg PO QID #20 capsule Indomethacin [Indocin 50 Mg Capsule] 50 mg PO DAILY #15 capsule
== END 2017-05-12 03:42 | disposition home or self-care (01) ==
LOC: ER 02:50
DX: M79.671 Pain in right foot (principal); L53.9 Erythematous condition, unspecified; I10 Essential (primary) hypertension; Z87.81 Personal history of (healed) traumatic fracture
CPT/HCPCS: 99283; J3490

== ENCOUNTER 2017-09-19 16:06 | Emergency (ER) | payer OTHER ==
[2017-09-19 16:17] VITALS: BP 145/92
[2017-09-19] MEDS ORDERED: IBUPROFEN 600 MG TABLET PO ONE (16:50)
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
== END 2017-09-19 17:08 | disposition home or self-care (01) ==
LOC: ER 16:06
DX: Z04.1 Encounter for examination and observation following transport accident (principal); V43.52XA Car driver injured in collision with other type car in traffic accident, initial encounter; I10 Essential (primary) hypertension
CPT/HCPCS: 99283

== ENCOUNTER 2017-09-22 12:04 | Emergency (ER) | payer OTHER ==
[2017-09-22] MEDS ORDERED: IBUPROFEN 600 MG TABLET PO ONE (12:37)
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
[2017-09-22 13:04] LABS: APPEARANCE,URINE CLEAR; BILIRUBIN,URINE NEGATIVE (NEGATIVE); COLOR,URINE YELLOW; GLUCOSE, URINE NEGATIVE (NEGATIVE); KETONES,URINE NEGATIVE (NEGATIVE); LEUKOCYTE ESTERASE,URINE NEGATIVE (NEGATIVE); NITRITE,URINE NEGATIVE (NEGATIVE); PROTEIN,URINE NEGATIVE (NEGATIVE); URINE SPECIFIC GRAVITY 1.015; UROBILINOGEN,URINE NEGATIVE mg/dL (<2.0)
[2017-09-22 14:58] VITALS: BP 144/80
== END 2017-09-22 14:58 | disposition home or self-care (01) ==
LOC: ER 12:04
DX: S63.602A Unspecified sprain of left thumb, initial encounter (principal); S39.012A Strain of muscle, fascia and tendon of lower back, initial encounter; M79.645 Pain in left finger(s); V49.40XA Driver injured in collision with unspecified motor vehicles in traffic accident, initial encounter; I10 Essential (primary) hypertension; R30.0 Dysuria
CPT/HCPCS: 72110; 81001; 99283

== ENCOUNTER 2017-10-27 12:42 | Observation (INO) | payer OTHER ==
--- NOTE | 2017-10-27 14:22 | ER Document Report ---
ED Medical Screen (RME) - General Chief Complaint: Leg Pain Stated Complaint: LEFT LEG PAIN Time Seen by Provider: 10/27/17 14:05 Mode of Arrival: Wheelchair Information source: Patient Notes: 57-year-old male history of CVA chronic left leg weakness presents with sudden worsening weakness of left lower extremity when he awoke this morning I have greeted and performed a rapid initial assessment of this patient. A comprehensive ED assessment and evaluation of the patient, analysis of test results and completion of the medical decision making process will be conducted by additional ED providers. PHYSICAL EXAMINATION: GENERAL: Well-appearing, well-nourished and in no acute distress. HEAD: Atraumatic, normocephalic. EYES: Pupils equal round extraocular movements intact, conjunctiva are normal. ENT: Nares patent NECK: Normal range of motion LUNGS: No respiratory distress Musculoskeletal: left leg weakness noted NEUROLOGICAL: Normal speech, normal gait. PSYCH: Normal mood, normal affect. SKIN: Warm, Dry, normal turgor, no rashes or lesions noted. TRAVEL OUTSIDE OF THE [place] IN LAST 30 DAYS: No - Related Data Allergies/Adverse Reactions: No Known Allergies Allergy (Verified 10/27/17 13:05) Past Medical History - Social History Chew tobacco use (# tins/day): No Frequency of alcohol use: None Drug Abuse: None - Past Medical History Cardiac Medical History: Reports: Hx Hypertension Neurological Medical History: Reports: Hx Cerebrovascular Accident Renal/ Medical History: Denies: Hx Peritoneal Dialysis Musculoskeltal Medical History: Reports Hx Arthritis, Reports Hx Gout Psychiatric Medical History: Reports: Hx Post Traumatic Stress Disorder Traumatic Medical History: Reports: Hx Fractures - foot Past Surgical History: Reports: Hx Orthopedic Surgery - right hand - Immunizations Immunizations up to date: Yes Hx Diphtheria, Pertussis, Tetanus Vaccination: Yes Physical Exam - Vital signs Vitals: Temp Pulse Resp BP Pulse Ox 98.6 F 68 20 155/95 H 97 10/27/17 13:16 10/27/17 13:16 10/27/17 13:16 10/27/17 13:16 10/27/17 13:16 Course - Vital Signs Vital signs: Temp Pulse Resp BP Pulse Ox 98.6 F 68 20 155/95 H 97 10/27/17 13:16 10/27/17 13:16 10/27/17 13:16 10/27/17 13:16 10/27/17 13:16
[2017-10-27 14:48] LABS: INTERNATIONAL RATION (INR) 1.01
[2017-10-27 14:49] LABS: PARTIAL THROMBOPLASTIN TIME 27.6 SEC (23.5-35.8)
--- NOTE | 2017-10-27 14:54 | RADIOLOGY REPORT (SQ) ---
EXAM DESCRIPTION: CHEST SINGLE VIEW COMPLETED DATE/TIME: 10/27/2017 2:38 pm REASON FOR STUDY: hx cva, left leg weakness COMPARISON: None. EXAM PARAMETERS: NUMBER OF VIEWS: One view. TECHNIQUE: Single frontal radiographic view of the chest acquired. RADIATION DOSE: NA LIMITATIONS: None. FINDINGS: LUNGS AND PLEURA: No opacities, masses or pneumothorax. No pleural effusion. MEDIASTINUM AND HILAR STRUCTURES: No masses. Contour normal. HEART AND VASCULAR STRUCTURES: Heart normal in size. Normal vasculature. BONES: No acute findings. HARDWARE: None in the chest. OTHER: No other significant finding. IMPRESSION: NO ACUTE RADIOGRAPHIC FINDING IN THE CHEST. TECHNICAL DOCUMENTATION: JOB ID: [id number] [employer]- All Rights Reserved Reading location - IP/workstation name: [email or web address]
[2017-10-27 14:56] LABS: PROTHROMBIN TIME 13.8 SEC (11.4-15.4)
[2017-10-27 15:05] LABS: ABSOLUTE BASOPHILS # (AUTO) 0.2 10^3/uL (0.0-0.2); ABSOLUTE EOSINOPHILS # (AUTO) 0.1 10^3/uL (0.0-0.6); ABSOLUTE MONOCYTES (AUTO) 0.8 10^3/uL (0.1-1.4); BASOPHILS % (AUTO) 2.1 % (0-2); EOSINOPHILS % (AUTO) 1.6 % (0-6); HEMATOCRIT 42.2 % (37.9-51.0); HEMOGLOBIN 14.8 g/dL (13.5-17.0); LYMPHOCYTES % (AUTO) 24.8 % (13-45); MEAN CORPUSCULAR HEMOGLOBIN 31.1 pg (27.0-33.4); MEAN CORPUSCULAR VOLUME 89 fl (80-97); MONOCYTES % (AUTO) 9.5 % (3-13); PLATELET COUNT 312 10^3/uL (150-450); RED BLOOD COUNT 4.74 10^6/uL (4.35-5.55); RED CELL DISTRIBUTION WIDTH 15.3 % (11.5-14.0); TOTAL CELLS COUNTED % (AUTO) 100 %; WHITE BLOOD COUNT 8.1 10^3/uL (4.0-10.5)
--- NOTE | 2017-10-27 15:12 | RADIOLOGY REPORT (SQ) ---
EXAM DESCRIPTION: CT HEAD WITHOUT COMPLETED DATE/TIME: 10/27/2017 2:52 pm REASON FOR STUDY: hx cva, left leg weakness COMPARISON: None. TECHNIQUE: Axial images acquired through the brain without intravenous contrast. Images reviewed wi th bone, brain and subdural windows. Additional sagittal and coronal reconstructions were generated. Images stored on PACS. All CT scanners at this facility use dose modulation, iterative reconstruction, and/or weight based d osing when appropriate to reduce radiation dose to as low as reasonably achievable (ALARA). [facility]: Dose Right [facility]: CareDose [facility]: Dose Right [facility]: Teradose 4D [facility]: [employer] Technologies RADIATION DOSE: CT Rad equipment meets quality standard of care and radiation dose reduction techniq ues were employed. CTDIvol: 48.7 mGy. DLP: 1004 mGy-cm. mGy. LIMITATIONS: None. FINDINGS: VENTRICLES: Normal size and contour. The cisterns are patent. CEREBRUM: Small old infarct adjacent to frontal horn of the right lateral ventricle. No masses. No hemorrhage. No midline shift. No evidence for acute infarction. CEREBELLUM: No masses. No hemorrhage. No alteration of density. No evidence for acute infarction. EXTRAAXIAL SPACES: No fluid collections. No masses. ORBITS AND GLOBE: No intra- or extraconal masses. Normal contour of globe without masses. CALVARIUM: No fracture. PARANASAL SINUSES: Mild ethmoid sinus mucosal thickening. SOFT TISSUES: No mass or hematoma. OTHER: No other significant finding. IMPRESSION: 1 Small remote infarct adjacent to the frontal horn of the right lateral ventricle. 2. No acute intracranial abnormality. 3.Mild ethmoid sinus disease. NORMAL BRAIN CT WITHOUT CONTRAST. EVIDENCE OF ACUTE STROKE: NO. COMMENT: Quality ID # [id number]: Final reports with documentation of one or more dose reduction techniques (e.g., Automated exposure control, adjustment of the mA and/or kV according to patient size, use of iterative reconstruction technique) TECHNICAL DOCUMENTATION: JOB ID: [id number] [employer]- All Rights Reserved Reading location - IP/workstation name: [email or web address]
[2017-10-27] MEDS ORDERED: ASPIRIN 325 MG TABLET PO ONE (15:13)
--- NOTE | 2017-10-27 15:16 | ER Document Report ---
ED General - General Chief Complaint: Leg Pain Stated Complaint: LEFT LEG PAIN Time Seen by Provider: 10/27/17 14:05 Mode of Arrival: Wheelchair Information source: Patient, Relative, [facility] Records Notes: 57-year-old male history of previous CVA with mild left-sided deficits left upper and left lower extremity presents with complaints of difficulty ambulating. Patient notes that last night he was restless this morning he woke and he could barely move his left leg. Normally patient states he is able to ambulate with walker today he could not move the leg and felt like weight TRAVEL OUTSIDE OF THE [place] IN LAST 30 DAYS: No - HPI Onset: This morning Onset/Duration: Sudden Quality of pain: No pain Severity: Moderate Pain Level: Denies Associated symptoms: Weakness Exacerbated by: Denies Relieved by: Denies Similar symptoms previously: Yes Recently seen / treated by doctor: No - Related Data Allergies/Adverse Reactions: No Known Allergies Allergy (Verified 10/27/17 13:05) Past Medical History - General Information source: Patient - Social History Smoking Status: Never Smoker Cigarette use (# per day): No Chew tobacco use (# tins/day): No Smoking Education Provided: No Frequency of alcohol use: None Drug Abuse: None Family History: Reviewed & Not Pertinent Patient has suicidal ideation: No Patient has homicidal ideation: No - Past Medical History Cardiac Medical History: Reports: Hx Hypertension Neurological Medical History: Reports: Hx Cerebrovascular Accident Renal/ Medical History: Denies: Hx Peritoneal Dialysis Musculoskeltal Medical History: Reports Hx Arthritis, Reports Hx Gout Psychiatric Medical History: Reports: Hx Post Traumatic Stress Disorder Traumatic Medical History: Reports: Hx Fractures - foot Past Surgical History: Reports: Hx Orthopedic Surgery - right hand - Immunizations Immunizations up to date: Yes Hx Diphtheria, Pertussis, Tetanus Vaccination: Yes Review of Systems - Review of Systems Notes: REVIEW OF SYSTEMS: CONSTITUTIONAL : Denies fever, chills, or sweats. Denies recent illness. EENT: Denies eye, ear, throat, or mouth pain or symptoms. Denies nasal or sinus congestion or discharge. Denies throat, tongue, or mouth swelling or difficulty swallowing. CARDIOVASCULAR: Denies chest pain. Denies palpitations or racing or irregular heart beat. Denies ankle edema. RESPIRATORY: Denies cough, cold, or chest congestion. Denies shortness of breath, difficulty breathing, or wheezing. GASTROINTESTINAL: Denies abdominal pain or distention. Denies nausea, vomiting , or diarrhea. Denies blood in vomitus, stools, or per rectum. Denies black, tarry stools. Denies constipation. GENITOURINARY: Denies difficulty urinating, painful urination, burning, frequency, blood in urine, or discharge. MUSCULOSKELETAL: Denies back or neck pain or stiffness. Denies joint pain or swelling. SKIN: Denies rash, lesions or sores. HEMATOLOGIC : Denies easy bruising or bleeding. LYMPHATIC: Denies swollen, enlarged glands. NEUROLOGICAL: Left leg weakness PSYCHIATRIC: Denies anxiety or stress. Denies depression, suicidal ideation, or homicidal ideation. ALL OTHER SYSTEMS REVIEWED AND NEGATIVE. Dictation was performed using [employer] voice recognition software PHYSICAL EXAMINATION: GENERAL: Well-appearing, well-nourished and in no acute distress. HEAD: Atraumatic, normocephalic. EYES: Pupils equal round and reactive to light, extraocular movements intact, sclera anicteric, conjunctiva are normal. ENT: Nares patent, oropharynx clear without exudates. Moist mucous membranes. NECK: Normal range of motion, supple without lymphadenopathy LUNGS: Breath sounds clear to auscultation bilaterally and equal. No wheezes rales or rhonchi. HEART: Regular rate and rhythm without murmurs ABDOMEN: Soft, nontender, nondistended abdomen. No guarding, no rebound. No masses appreciated. Musculoskeletal: Mild weakness of the left upper extremity significant weakness of the left lower extremity NEUROLOGICAL: Cranial nerves grossly intact. Normal speech, PSYCH: Normal mood, normal affect. SKIN: Warm, Dry, normal turgor, no rashes or lesions noted. Physical Exam - Vital signs Vitals: Temp Pulse Resp BP Pulse Ox 98.6 F 68 20 155/95 H 97 10/27/17 13:16 10/27/17 13:16 10/27/17 13:16 10/27/17 13:16 10/27/17 13:16 Course - Re-evaluation Re-evalutation: 10/27/17 15:16 Patient is a candidate for thrombolytics given the onset was upon awakening, CT is consistent with a remote infarct I will observe the patient for further evaluation and care and hospital - Vital Signs Vital signs: Temp Pulse Resp BP Pulse Ox 98.6 F 63 18 164/99 H 97 10/27/17 13:16 10/27/17 16:14 10/27/17 16:14 10/27/17 16:14 10/27/17 16:14 - Laboratory Result Diagrams: 10/27/17 14:32 10/27/17 14:32 Laboratory results interpreted by me: 10/27/17 10/27/17 10/27/17 14:32 14:32 14:32 RDW 15.3 H Basophils % 2.1 H Magnesium 2.4 H Total Bilirubin 1.4 H Creatine Kinase 298 H Total Protein 8.3 H - Diagnostic Test Radiology reviewed: Image reviewed - CT head without contrast consistent with a remote infarct of the right films, Reports reviewed Discharge - Discharge Clinical Impression: Left leg weakness CVA (cerebral vascular accident) Qualifiers: CVA mechanism: embolism Precerebral and cerebral artery: unspecified cerebral artery Qualified Code(s): I63.40 - Cerebral infarction due to embolism of unspecified cerebral artery Condition: Stable Disposition: ADMITTED OBSERVATION Admitting Provider: Hospitalist Unit Admitted: IMCU
[2017-10-27 15:21] LABS: ALANINE AMINOTRANSFERASE 34 U/L (21-72); ALBUMIN 4.8 g/dL (3.5-5.0); ALKALINE PHOSPHATASE 63 U/L (38-126); ANION GAP 14 (5-19); ASPARTATE AMINO TRANSFERASE 33 U/L (17-59); BILIRUBIN,DIRECT 0.3 mg/dL (0.0-0.4); BILIRUBIN,TOTAL 1.4 mg/dL (0.2-1.3); BLOOD UREA NITROGEN 10 mg/dL (7-20); CALCIUM 10.1 mg/dL (8.4-10.2); CARBON DIOXIDE 25 mmol/L (22-30); CHLORIDE 103 mmol/L (98-107); CREATINE KINASE 298 U/L (55-170); GLUCOSE 96 mg/dL (75-110); POTASSIUM 4.6 mmol/L (3.6-5.0); SODIUM 142.1 mmol/L (137-145); TOTAL PROTEIN 8.3 g/dL (6.3-8.2)
[2017-10-27 15:30] LABS: CREATINE KINASE MB 3.67 ng/mL (<4.55)
[2017-10-27 15:35] LABS: TROPONIN I < 0.012 ng/mL
[2017-10-27] MEDS ORDERED: ONDANSETRON HCL INJ/PF 4 MG/2 ML SDV IV PRN (16:14)
[2017-10-27] MEDS ORDERED: ACETAMINOPHEN 325 MG TABLET PO PRN (16:14)
[2017-10-27] MEDS ORDERED: ONDANSETRON 4 MG TAB.RAPDIS PO PRN (16:14)
[2017-10-27 16:31] LABS: PHOSPHORUS 3.9 mg/dL (2.5-4.5)
[2017-10-27] MEDS ORDERED: HYDRALAZINE HCL INJ/PF 20 MG/1 ML SDV IV PRN (17:11)
--- NOTE | 2017-10-27 17:11 | PDOC H&P ---
History of Present Illness Admission Date/PCP: 10/27/17 15:51 [facility] Patient complains of: L leg weakness History of Present Illness: CHARLY ALVAREZ is a 57 year old male with past medical history of Hypertension 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 He reports that last night he was feeling sick and had multiple episodes of vomiting and also noticed some jerking of his left leg. This morning he noticed increased left weakness with inability to walk. At baseline he does have left-sided weakness but is able to ambulate without using a cane or a walker. He denies any visual changes any numbness or tingling any loss of consciousness. No recent illness. The patient and his report that he ran out of his blood pressure medications about more than a month ago but [facility]. He does report taking an aspirin daily. Never smoker. Past Medical History Cardiac Medical History: Reports: Hypertension Neurological Medical History: Reports: Ischemic CVA Musculoskeltal Medical History: Reports: Arthritis, Gout Psychiatric Medical History: Reports: Post Traumatic Stress Disorder Past Surgical History Past Surgical History: Reports: Orthopedic Surgery - right hand Social History Smoking Status: Never Smoker Frequency of Alcohol Use: Occasional Drugs: None Family History Family History: DM, Hypertension Parental Family History Reviewed: Yes Children Family History Reviewed: Yes Sibling(s) Family History Reviewed.: Yes Medication/Allergy Home Medications: Cephalexin Monohydrate [Keflex 500 mg Capsule] 500 mg PO QID #20 capsule Indomethacin [Indocin 50 Mg Capsule] 50 mg PO DAILY #15 capsule 05/12/17 Baclofen [Baclofen 10 mg Tablet] 5 - 10 mg PO BID PRN #10 tablet 09/19/17 Naproxen 500 mg PO BID PRN #30 tablet 09/19/17 Tramadol HCl [Ultram 50 mg Tablet] 50 mg PO Q6HP PRN #12 tablet 09/22/17 Allergies/Adverse Reactions: No Known Allergies Allergy (Verified 10/27/17 13:05) Review of Systems Constitutional: ABSENT: fever(s), headache(s) Eyes: ABSENT: visual disturbances Ears: ABSENT: hearing changes Nose, Mouth, and Throat: ABSENT: sore throat Cardiovascular: ABSENT: chest pain, palpitations Respiratory: ABSENT: dyspnea Gastrointestinal: ABSENT: abdominal pain, vomiting Genitourinary: ABSENT: dysuria Musculoskeletal: ABSENT: joint swelling Integumentary: ABSENT: pruritus Neurological: PRESENT: abnormal gait, focal weakness. ABSENT: numbness, syncope Psychiatric: ABSENT: hallucinations Endocrine: ABSENT: heat intolerance Hematologic/Lymphatic: ABSENT: easy bleeding Allergic/Immunologic: ABSENT: seasonal rhinorrhea Physical Exam Vital Signs: Temp Pulse Resp BP Pulse Ox 98.6 F 63 18 164/99 H 97 10/27/17 13:16 10/27/17 16:14 10/27/17 16:14 10/27/17 16:14 10/27/17 16:14 General appearance: PRESENT: no acute distress, well-developed, well-nourished Head exam: PRESENT: normocephalic Ear exam: PRESENT: normal external ear exam Mouth exam: PRESENT: moist Teeth exam: PRESENT: edentulous Neck exam: ABSENT: carotid bruit, tracheal deviation Respiratory exam: PRESENT: symmetrical, unlabored. ABSENT: wheezes Cardiovascular exam: PRESENT: RRR GI/Abdominal exam: PRESENT: normal bowel sounds, soft. ABSENT: tenderness Rectal exam: PRESENT: deferred Extremities exam: ABSENT: pedal edema Neurological exam: PRESENT: alert, awake, oriented to person, oriented to place , oriented to time, oriented to situation, other - Bilateral upper extremity strength 5 out of 5, right lower extremity strength 5 out of 5, left lower extremity strength 4 out of 5 Sensation intact and equal to touch bilaterally No facial droop. Speech is clear and fluent. Psychiatric exam: PRESENT: appropriate affect Skin exam: ABSENT: petechiae Results Impressions: Chest X-Ray 10/27/17 14:21 IMPRESSION: NO ACUTE RADIOGRAPHIC FINDING IN THE CHEST. Head CT 10/27/17 14:21 IMPRESSION: 1 Small remote infarct adjacent to the frontal horn of the right lateral ventricle. 2. No acute intracranial abnormality. 3.Mild ethmoid sinus disease. NORMAL BRAIN CT WITHOUT CONTRAST. EVIDENCE OF ACUTE STROKE: NO. Assessment & Plan - Diagnosis (1) CVA (cerebral vascular accident) Qualifiers: CVA mechanism: thrombosis Precerebral and cerebral artery: unspecified cerebral artery Qualified Code(s): I63.30 - Cerebral infarction due to thrombosis of unspecified cerebral artery Is this a current diagnosis for this admission?: Yes Plan: Serial neuro exams Monitor on telemetry Echocardiogram carotid Doppler and MRI brain. Check hemoglobin A1c and lipid profile Aspirin and statin. PT OT (2) Left leg weakness Is this a current diagnosis for this admission?: Yes Plan: As above. (3) Hypertension Is this a current diagnosis for this admission?: Yes Plan: Permissive hypertension. - Time Time Spent: 50 to 70 Minutes
[2017-10-27] MEDS ORDERED: ATORVASTATIN CALCIUM 80 MG TABLET PO SCH (22:00)
[2017-10-28 05:33] LABS: CHOLESTEROL 141.65 mg/dL (0-200); TRIGLYCERIDES 50 mg/dL (<150)
[2017-10-28 05:43] LABS: DIRECT LDL 90 mg/dL (<100)
[2017-10-28] MEDS ORDERED: LANSOPRAZOLE 30 MG TAB.RAP.DR PO SCH (06:00)
--- NOTE | 2017-10-28 07:35 | EKG REPORT ---
SEVERITY:- NORMAL ECG - SINUS RHYTHM : Confirmed by: Goyo Solitario MD 28-Oct-2017 07:34:30
[2017-10-28] MEDS ORDERED: ASPIRIN 325 MG TABLET, ENT COATED PO SCH (10:00)
--- NOTE | 2017-10-28 10:36 | RADIOLOGY REPORT (SQ) ---
EXAM DESCRIPTION: MRI HEAD WITHOUT COMPLETED DATE/TIME: 10/28/2017 8:01 am REASON FOR STUDY: CVA COMPARISON: CT brain 10/27/2017 TECHNIQUE: Multiplanar imaging includes non-contrasted T1, T2, FLAIR, and diffusion with ADC map seq uences. Images stored on PACS. LIMITATIONS: None. FINDINGS: ANATOMY: No developmental anomalies. Normal vascular flow voids. Pituitary fossa normal. CSF SPACES: Normal in size and contour. No hemorrhage. CEREBRUM: Sulci and gyri normal in size and contour. Moderate diffuse increased bifrontal and bipari etal white matter signal on FLAIR imaging, involving deep pericallosal white matter. This could repr esent chronic small vessel ischemic change. Chronic demyelinating disease is also possible. No evid ence of acute hemorrhage, mass, or extraaxial fluid collection. POSTERIOR FOSSA: No signal alteration. No hemorrhage. No edema, masses or mass effect. Internal xavi tory canals, cerebello-pontine angles, mastoids normal. DIFFUSION IMAGING: Negative for acute or sub-acute infarction. ORBITS: No masses. Globes normal. PARANASAL SINUSES: No fluid levels. Mucosa normal. OTHER: No other significant finding. IMPRESSION: Moderate hemispheric white matter disease, either small vessel ischemic change or demyel inating disease. No acute findings. EVIDENCE OF ACUTE STROKE: NO. TECHNICAL DOCUMENTATION: JOB ID: [id number] [employer]- All Rights Reserved Reading location - IP/workstation name: [email or web address]
--- NOTE | 2017-10-28 12:36 | RADIOLOGY REPORT (SQ) ---
EXAM DESCRIPTION: CAROTID DOPPLER COMPLETED DATE/TIME: 10/28/2017 12:20 pm REASON FOR STUDY: CVA COMPARISON: MRI brain 10/28/2017 CT brain 10/27/2017 TECHNIQUE: Grayscale ultrasound, Doppler velocity and spectra, and color Doppler images acquired of the extra-cranial carotid and vertebral arteries. Images stored on PACS. LIMITATIONS: None. FINDINGS: RIGHT CAROTID CCA Velocities: Within normal limits. ICA Velocities Peak systolic 1.1 m/s. End diastolic 0.37 m/s. Proximal ICA/CCA peak systolic ratio 1.5. Spectra normal. No significant plaque. LEFT CAROTID CCA Velocities: Within normal limits. ICA Velocities Peak systolic 0.62 m/s. End diastolic 0.21 m/s. Proximal ICA/CCA peak systolic ratio 1.2. Spectra normal. No significant plaque. VERTEBRAL ARTERIES: Antegrade flow. Normal waveforms. SUBCLAVIAN ARTERIES: Not evaluated OTHER: No other significant finding. IMPRESSION: NO HEMODYNAMICALLY SIGNIFICANT STENOSIS. COMMENT: Quality ID #[id number]: Velocity criteria are extrapolated from the diameter data as defined by t he Society of Radiologists in Ultrasound Consensus Conference. Radiology 2003: 229; 340-346. TECHNICAL DOCUMENTATION: JOB ID: [id number] [employer]- All Rights Reserved Reading location - IP/workstation name: [email or web address]
--- NOTE | 2017-10-28 13:33 | XCELERA REPORT ---
[address] [address] Transthoracic Echocardiogram Report Name: CHARLY ALVAREZ Age: 57 yrs Gender: Male : 1960 Patient Status: Inpatient Patient Location: [address] [place], [place] [address] Study Date: 10/28/2017 08:56 AM Height: 73 in Weight: 195 lb BSA: 2.1 m2 Procedure: A two-dimensional transthoracic echocardiogram with color flow and Doppler was performed. Study Quality: Fair. Reason For Study: CVA History: CVA. Ordering Physician: BETO PEDERSEN Performed By: Chasity Leslie Interpretation Summary There is no obvious cardiac source of embolus noted on this transthoracic echocardiogram. Follow-up with a TYRA is suggested if cardiac source is still suspected. The left ventricle is normal in size. There is normal left ventricular wall thickness. LV EF is > than 65% Left ventricular systolic function is low normal. Doppler measurements suggest impaired left ventricular relaxation, which is associated with grade I/IV or mild diastolic dysfunction The left ventricular wall motion is normal. There is no thrombus. There is no ventricular septal defect visualized. The right ventricle is grossly normal size. The right atrium is normal. The left atrial size is normal. The interatrial septum is intact with no evidence for an atrial septal defect. There is no evidence of mitral valve prolapse. There is no vegetation seen on the mitral valve. There is no mitral valve stenosis. There is no mitral regurgitation noted. There is no aortic valve stenosis There is no LVOT obstruction. No aortic regurgitation is present. There is no tricuspid stenosis. There is a trace to mild amount of tricuspid regurgitation There is mild pulmonary hypertension by echo RVSP is 34 to 39 mm of Hg , with RA mean of 5 to 10. There is no pulmonic valvular stenosis. There is a trace amount of pulmonic regurgitation The aortic root is normal size. The inferior vena cava appeared normal and decreased > 50% with respiration (RAP 5-10 mmHg) There is no pericardial effusion. There is no obvious cardiac source of embolus noted on this transthoracic echocardiogram. Follow-up with a TYRA is suggested if cardiac source is still suspected MMode/2D Measurements & Calculations RVDd: 3.8 cm LVIDd: 4.9 cm FS: 38.6 % Ao root diam: 3.1 cm IVSd: 1.1 cm LVIDs: 3.0 cm EDV(Teich): 113.8 ml LVPWd: 1.1 cm ESV(Teich): 35.6 ml Ao root area: 7.6 cm2 EF(Teich): 68.7 % LA dimension: 3.3 cm Doppler Measurements & Calculations MV E max myrna: MV P1/2t max myrna: Ao V2 max: LV V1 max P.0 cm/sec 76.5 cm/sec 125.7 cm/sec 3.4 mmHg MV A max myrna: MV P1/2t: 90.3 msec Ao max PG: LV V1 max: 76.5 cm/sec 6.3 mmHg 91.8 cm/sec MV E/A: 0.98 MVA(P1/2t): 2.4 cm2 MV dec slope: 248.1 cm/sec2 MV dec time: 0.32 sec PA V2 max: PI end-d myrna: TR max myrna: 83.9 cm/sec 129.0 cm/sec 266.0 cm/sec PA max PG: TR max P.8 mmHg 28.3 mmHg Left Ventricle The left ventricle is normal in size. There is normal left ventricular wall thickness. LV EF is > than 65%. Left ventricular systolic function is low normal. Doppler measurements suggest impaired left ventricular relaxation, which is associated with grade I/IV or mild diastolic dysfunction. The left ventricular wall motion is normal. There is no thrombus. There is no ventricular septal defect visualized. Right Ventricle The right ventricle is grossly normal size. Atria The right atrium is normal. The left atrial size is normal. The interatrial septum is intact with no evidence for an atrial septal defect. Mitral Valve There is no evidence of mitral valve prolapse. There is no vegetation seen on the mitral valve. There is no mitral valve stenosis. There is no mitral regurgitation noted. Aortic Valve The aortic valve is trileaflet. The aortic valve opens well. There is no aortic valvular vegetation. There is no aortic valve stenosis. There is no LVOT obstruction. No aortic regurgitation is present. Tricuspid Valve There is no tricuspid stenosis. There is a trace to mild amount of tricuspid regurgitation. There is mild pulmonary hypertension by echo. RVSP is 34 to 39 mm of Hg , with RA mean of 5 to 10. Pulmonic Valve There is no pulmonic valvular stenosis. There is a trace amount of pulmonic regurgitation. Great Vessels The aortic root is normal size. The inferior vena cava appeared normal and decreased > 50% with respiration (RAP 5-10 mmHg). Effusions There is no pericardial effusion. : NUVIA SEPTEMBER > Michelle Ornelas
--- NOTE | 2017-10-28 15:02 | PDOC DISCHARGE SUMMARY ---
General - Admit/Disc Date/PCP Admission Date/Primary Care Provider: 10/27/17 15:51 [facility] Discharge Date: 10/28/17 - Discharge Diagnosis (1) CVA (cerebral vascular accident) Is this a current diagnosis for this admission?: No Summary: He had transient L leg weakness. CVA was ruled out (2) Left leg weakness Is this a current diagnosis for this admission?: Yes Summary: He had transient L leg weakness. CVA was ruled out (3) Hypertension Is this a current diagnosis for this admission?: Yes Summary: He had run out of his meds for the past 2 months. He was given prescription for full dose ASA, Losartan 50 mg and Atorvastatin 20 mg - Additional Information Resuscitation Status: Full Code Discharge Activity: Activity As Tolerated Prescriptions: Atorvastatin Calcium [Lipitor 20 mg Tablet] 20 mg PO QHS 30 Days #30 tablet Aspirin [Ecotrin 325 mg EC Tablet] 325 mg PO DAILY 90 Days #90 tabec Losartan Potassium [Cozaar 50 mg Tablet] 50 mg PO DAILY 30 Days #30 tablet Home Medications: Naproxen 500 mg PO BID PRN #30 tablet 09/19/17 Tramadol HCl [Ultram 50 mg Tablet] 50 mg PO Q6HP PRN #12 tablet 09/22/17 Baclofen [Baclofen 10 mg Tablet] 10 mg PO BID PRN 10/27/17 Acetaminophen [Tylenol 325 mg Tablet] 650 mg PO Q4HP PRN tablet 10/28/17 Aspirin [Ecotrin 325 mg EC Tablet] 325 mg PO DAILY 90 Days #90 tabec 10/28/17 Atorvastatin Calcium [Lipitor 20 mg Tablet] 20 mg PO QHS 30 Days #30 tablet 05/05 Losartan Potassium [Cozaar 50 mg Tablet] 50 mg PO DAILY 30 Days #30 tablet 10/28 History of Present Illness History of Present Illness: CHARLY ALVAREZ is a 57 year old male with past medical history of Hypertension 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 He reports that last night he was feeling sick and had multiple episodes of vomiting and also noticed some jerking of his left leg. This morning he noticed increased left weakness with inability to walk. At baseline he does have left-sided weakness but is able to ambulate without using a cane or a walker. The patient and his report that he ran out of his blood pressure medications about more than a month ago but [facility]. Never smoker. CT on admission showed a small remote infarct adjacent to the frontal horn of the right lateral ventricle with no acute abnormality. Left lower extremity was 4 out of 5 on admission. Right lower extremity 5 out of 5, bilateral upper extremities 5 out of 5. No facial droop no speech abnormality. MRI did not show any evidence of stroke Echocardiogram showed a left ventricular ejection fraction more than 65% with normal left ventricular wall thickness and impaired LV relaxation. Intact interatrial septum no gross valvular abnormalities or thrombus. Carotid Dopplers showed no stenosis. He was seen by physical therapy and they felt that he would benefit from home physical therapy and a rolling walker. The patient feels better his left lower extremity strength is now 5 out of 5. He is stable for discharge home. Hospital Course Hospital Course: As above. Acute stroke was ruled out. Physical Exam Vital Signs: Temp Pulse Resp BP Pulse Ox 97.5 F 57 L 16 159/99 H 100 10/28/17 08:10 10/28/17 08:10 10/28/17 08:10 10/28/17 08:10 10/28/17 08:10 Intake & Output 10/27/17 10/28/17 10/29/17 06:59 06:59 06:59 Intake Total 5 325 Output Total 475 Balance -470 325 Weight 88.6 kg General appearance: PRESENT: no acute distress Head exam: PRESENT: normocephalic Respiratory exam: PRESENT: symmetrical, unlabored Neurological exam: PRESENT: alert, awake, oriented to person, oriented to place , oriented to time, oriented to situation Results Laboratory Results: 10/28/17 04:52 Triglycerides 50 Cholesterol 141.65 LDL Cholesterol Direct 90 VLDL Cholesterol 10.0 HDL Cholesterol 39 L Impressions: Chest X-Ray 10/27/17 14:21 IMPRESSION: NO ACUTE RADIOGRAPHIC FINDING IN THE CHEST. Head CT 10/27/17 14:21 IMPRESSION: 1 Small remote infarct adjacent to the frontal horn of the right lateral ventricle. 2. No acute intracranial abnormality. 3.Mild ethmoid sinus disease. NORMAL BRAIN CT WITHOUT CONTRAST. EVIDENCE OF ACUTE STROKE: NO. Carotid Doppler Study 10/28/17 00:00 IMPRESSION: NO HEMODYNAMICALLY SIGNIFICANT STENOSIS. Head MRI 10/28/17 00:00 IMPRESSION: Moderate hemispheric white matter disease, either small vessel ischemic change or demyelinating disease. No acute findings. EVIDENCE OF ACUTE STROKE: NO. Qualifiers - * PATIENT BEING DISCHARGED WITH ANY OF THE FOLLOWING DIAGNOSIS: No Plan Time Spent: Greater than 30 Minutes
[2017-10-28] MEDS ORDERED: LOSARTAN POTASSIUM 50 MG TABLET PO ONE (15:30)
[2017-10-28 15:54] VITALS: BP 154/76
[2017-10-28] MEDS ORDERED: ATORVASTATIN CALCIUM 20 MG TABLET PO SCH (22:00)
[2017-10-29] MEDS ORDERED: LOSARTAN POTASSIUM 50 MG TABLET PO SCH (10:00)
== END 2017-10-28 16:34 | disposition home health service (06) ==
LOC: ER 12:42 → EH 15:51 → 3W 21:19
PROVIDERS: ADMIT Internal Medicine; ATTEND Internal Medicine
DX: I69.354 Hemiplegia and hemiparesis following cerebral infarction affecting left non-dominant side (principal); I10 Essential (primary) hypertension; R11.10 Vomiting, unspecified; R26.2 Difficulty in walking, not elsewhere classified; M19.90 Unspecified osteoarthritis, unspecified site; G25.89 Other specified extrapyramidal and movement disorders; Z79.899 Other long term (current) drug therapy; Z79.82 Long term (current) use of aspirin; Z82.49 Family history of ischemic heart disease and other diseases of the circulatory system; Z87.81 Personal history of (healed) traumatic fracture
CPT/HCPCS: 93005; 99285; 36415 ×2; 82553; 82550; 83735; 84100; 85025; 85610; 85730; 80053; 84484; 83036; 80061; 93306; 93880; 70551; 71045; 70450; 93010; 97116; 97163; 97166; G0378 ×3; J3490 ×2

== ENCOUNTER 2018-01-12 10:20 | Day surgery (SDC) | payer OTHER ==
[~2018-01-12 10:20] MED LIST: PROPOFOL INJ 200 MG/20 ML VIAL IV ONE
[2018-01-12 14:13] VITALS: BP 112/85
--- NOTE | 2018-01-12 15:40 | Operative Report ---
Operative Report DATE OF SURGERY: 01/12/18 Operative Report: The risks, benefits and alternatives of the procedure including risks of bleeding, perforation requiring surgery are explained to the patient in detail and informed consent is obtained. The patient has taken back to the endoscopy suite and placed in the left, lateral decubital position. Timeout was called. Propofol medication is administered. A rectal examination is done which did not reveal any masses, tears or fissures. An Olympus videoscope was inserted into the patient's rectum. The scope was then carefully advanced all the way to the cecum. The cecum was identified by the usual anatomical landmarks including the ileocecal valve as well as the appendiceal office. Photodocumentation is obtained. The scope was then sequentially pulled back via the rest segments of the colon including the ascending colon, hepatic flexure, transverse colon, splenic flexure, descending colon and finding to the rectosigmoid portions of the colon. Retroflexion maneuver is performed. PREOPERATIVE DIAGNOSIS: Colorectal cancer screening POSTOPERATIVE DIAGNOSIS: Small sessile polyp noted on the right side of the colon along with some inflammation status post biopsy. Internal hemorrhoids. Prep in general was poor OPERATION: Colonoscopy with biopsy SURGEON: ANTONIO PETERS ANESTHESIA: LMAC TISSUE REMOVED OR ALTERED: As noted above. COMPLICATIONS: None. ESTIMATED BLOOD LOSS: None. INTRAOPERATIVE FINDINGS: As noted above. PROCEDURE: Patient tolerated the procedure well. No immediate postprocedure complications are noted. Patient discharged in good condition. Discharge date 01/12/2018. Discharge diet: Regular. Discharge activity: Regular. 2-3 week follow-up to discuss findings. Patient is instructed to call the office or proceed to the emergency room should there be any further problems or questions. We will wait on pathology.
== END 2018-01-12 13:45 | disposition home or self-care (01) ==
LOC: END 10:20
PROVIDERS: ATTEND Internal Medicine Gastroenterology
DX: Z12.11 Encounter for screening for malignant neoplasm of colon (principal); K64.8 Other hemorrhoids; D57.3 Sickle-cell trait; I10 Essential (primary) hypertension; I69.854 Hemiplegia and hemiparesis following other cerebrovascular disease affecting left non-dominant side; Z86.73 Personal history of transient ischemic attack (TIA), and cerebral infarction without residual deficits
CPT/HCPCS: 45380; 88305 ×2; J2704

== ENCOUNTER 2018-07-11 13:45 | Emergency (ER) | payer OTHER ==
[2018-07-11] MEDS ORDERED: NORMAL SALINE 500 ML IV ONE (14:15)
[2018-07-11] MEDS ORDERED: ACETAMINOPHEN 325 MG TABLET PO ONE (14:15)
--- NOTE | 2018-07-11 14:16 | ER Document Report ---
ED Medical Screen (RME) - General Chief Complaint: Urinary Problem Stated Complaint: URINARY PROBLEMS Time Seen by Provider: 07/11/18 14:09 Notes: Patient is a 58-year-old male that presents to the emergency department for chief complaint of urinary urgency and headache. Patient states the symptoms started last night, get a cramp in the middle of his legs, and then have to run to the bathroom. Is never had anything like this before. No history of prostate issues. ROS: Other than noted above, the 12 point review of systems was reviewed with the patient and were negative, all pertinent findings are included in the HPI. PHYSICAL EXAMINATION: Vital signs reviewed. GENERAL: Well-appearing, well-nourished and in no acute distress. HEAD: Atraumatic, normocephalic. EYES: Pupils equal round extraocular movements intact, conjunctiva are normal. ENT: Nares patent NECK: Normal range of motion CV: Heart regular rate and rhythm LUNGS: No respiratory distress Musculoskeletal: Normal range of motion NEUROLOGICAL: Normal speech PSYCH: Normal mood, normal affect. MDM: Patient seen and examined for rapid initial assessment. Vital signs reviewed. A comprehensive ED assessment and evaluation of the patient, analysis of test results and completion of the medical decision making process will be conducted by additional ED providers. *Note is created using voice recognition software and may contain spelling, syntax or grammatical errors. TRAVEL OUTSIDE OF THE [place] IN LAST 30 DAYS: No - Related Data Allergies/Adverse Reactions: No Known Allergies Allergy (Verified 07/11/18 13:46) Past Medical History - Past Medical History Cardiac Medical History: Reports: Hx Hypertension Denies: Hx Coronary Artery Disease, Hx Heart Attack Pulmonary Medical History: Denies: Hx Asthma, Hx Bronchitis, Hx COPD, Hx Pneumonia Neurological Medical History: Reports: Hx Cerebrovascular Accident. Denies: Hx Seizures Renal/ Medical History: Denies: Hx Peritoneal Dialysis Musculoskeltal Medical History: Reports Hx Arthritis, Reports Hx Gout Psychiatric Medical History: Reports: Hx Post Traumatic Stress Disorder Traumatic Medical History: Reports: Hx Fractures - foot Past Surgical History: Reports: Hx Orthopedic Surgery - right hand - Immunizations Immunizations up to date: Yes Hx Diphtheria, Pertussis, Tetanus Vaccination: Yes History of Influenza Vaccine for 02/2017 - 07/2017 Season: No Physical Exam - Vital signs Vitals: Temp Pulse Resp BP Pulse Ox 100.8 F H 103 H 18 160/96 H 98 07/11/18 13:59 07/11/18 13:59 07/11/18 13:59 07/11/18 13:59 07/11/18 13:59 Course - Vital Signs Vital signs: Temp Pulse Resp BP Pulse Ox 100.8 F H 103 H 18 160/96 H 98 07/11/18 13:59 07/11/18 13:59 07/11/18 13:59 07/11/18 13:59 07/11/18 13:59
[2018-07-11 15:04] LABS: ABSOLUTE BASOPHILS # (AUTO) 0.1 10^3/uL (0.0-0.2); ABSOLUTE LYMPHOCYTES (AUTO) 1.1 10^3/uL (0.5-4.7); ABSOLUTE MONOCYTES (AUTO) 1.6 10^3/uL (0.1-1.4); ABSOLUTE NEUT (AUTO) 15.9 10^3/uL (1.7-8.2); BASOPHILS % (AUTO) 0.4 % (0-2); EOSINOPHILS % (AUTO) 0.1 % (0-6); HEMATOCRIT 40.8 % (37.9-51.0); HEMOGLOBIN 14.2 g/dL (13.5-17.0); LYMPHOCYTES % (AUTO) 5.8 % (13-45); MEAN CORPUSCULAR HGB CONC 34.9 g/dL (32.0-36.0); MEAN CORPUSCULAR VOLUME 89 fl (80-97); MONOCYTES % (AUTO) 8.4 % (3-13); PLATELET COUNT 240 10^3/uL (150-450); RED BLOOD COUNT 4.59 10^6/uL (4.35-5.55); RED CELL DISTRIBUTION WIDTH 15.4 % (11.5-14.0); SEGMENTED NEUTROPHILS % (AUTO) 85.3 % (42-78); TOTAL CELLS COUNTED % (AUTO) 100 %; WHITE BLOOD COUNT 18.6 10^3/uL (4.0-10.5)
[2018-07-11 15:25] LABS: AMORPHOUS SEDIMENT,URINE TRACE /HPF; APPEARANCE,URINE CLOUDY; BILIRUBIN,URINE NEGATIVE (NEGATIVE); COLOR,URINE YELLOW; GLUCOSE, URINE NEGATIVE (NEGATIVE); KETONES,URINE NEGATIVE (NEGATIVE); LEUKOCYTE ESTERASE,URINE LARGE (NEGATIVE); NITRITE,URINE POSITIVE (NEGATIVE); PROTEIN,URINE 30 mg/dL (NEGATIVE); URINE SPECIFIC GRAVITY 1.013; UROBILINOGEN,URINE NEGATIVE mg/dL (<2.0)
[2018-07-11 15:27] LABS: ALANINE AMINOTRANSFERASE 35 U/L (21-72); ALBUMIN 5.1 g/dL (3.5-5.0); ALKALINE PHOSPHATASE 68 U/L (38-126); ANION GAP 12 (5-19); ASPARTATE AMINO TRANSFERASE 32 U/L (17-59); BILIRUBIN,DIRECT 0.3 mg/dL (0.0-0.4); BILIRUBIN,TOTAL 2.2 mg/dL (0.2-1.3); BLOOD UREA NITROGEN 11 mg/dL (7-20); CARBON DIOXIDE 27 mmol/L (22-30); CHLORIDE 102 mmol/L (98-107); GLUCOSE 119 mg/dL (75-110); POTASSIUM 4.6 mmol/L (3.6-5.0); SODIUM 140.7 mmol/L (137-145); TOTAL PROTEIN 8.2 g/dL (6.3-8.2)
[2018-07-11 16:12] VITALS: BP 144/91
[2018-07-11] MEDS ORDERED: CEFTRIAXONE 1 GM/D5W RTU 50 ML IV ONE (17:39)
--- NOTE | 2018-07-11 17:39 | ER Document Report ---
ED GI/ - General Chief Complaint: Urinary Problem Stated Complaint: URINARY PROBLEMS Time Seen by Provider: 07/11/18 14:09 Primary Care Provider: IVANA SUNSHINE MD [NO LOCAL MD] - Follow up as needed [facility] [[facility] - Follow up as needed Mode of Arrival: Ambulatory Information source: Patient Notes: Patient is a 58-year-old male who presents the emergency department with frequent urination as well as intermittent cramping in his legs. Patient has also had intermittent left flank pain. Patient denies any knowledge of any blood in his urine. Denies any dysuria. Patient has not had any history of same. Patient does report he has had fevers yesterday but none today. Denies any nausea, vomiting or diarrhea. Patient reports no concern for possible STDs. TRAVEL OUTSIDE OF THE [place] IN LAST 30 DAYS: No - Related Data Allergies/Adverse Reactions: No Known Allergies Allergy (Verified 07/11/18 13:46) Past Medical History - General Information source: Patient - Social History Smoking Status: Never Smoker Chew tobacco use (# tins/day): No Frequency of alcohol use: None Drug Abuse: None Family History: DM, Hypertension Patient has suicidal ideation: No Patient has homicidal ideation: No - Past Medical History Cardiac Medical History: Reports: Hx Hypertension Denies: Hx Coronary Artery Disease, Hx Heart Attack Pulmonary Medical History: Denies: Hx Asthma, Hx Bronchitis, Hx COPD, Hx Pneumonia Neurological Medical History: Reports: Hx Cerebrovascular Accident. Denies: Hx Seizures Renal/ Medical History: Denies: Hx Peritoneal Dialysis Musculoskeletal Medical History: Reports Hx Arthritis, Reports Hx Gout Psychiatric Medical History: Reports: Hx Post Traumatic Stress Disorder Traumatic Medical History: Reports: Hx Fractures - foot Past Surgical History: Reports: Hx Orthopedic Surgery - right hand - Immunizations Immunizations up to date: Yes Hx Diphtheria, Pertussis, Tetanus Vaccination: Yes Review of Systems - Review of Systems Constitutional: Chills, Fever EENT: No symptoms reported Cardiovascular: No symptoms reported Respiratory: No symptoms reported Gastrointestinal: No symptoms reported Genitourinary: Frequency, Incontinence Male Genitourinary: No symptoms reported Musculoskeletal: See HPI Skin: No symptoms reported Hematologic/Lymphatic: No symptoms reported Neurological/Psychological: No symptoms reported Physical Exam - Vital signs Vitals: Temp Pulse Resp BP Pulse Ox 100.8 F H 103 H 18 160/96 H 98 07/11/18 13:59 07/11/18 13:59 07/11/18 13:59 07/11/18 13:59 07/11/18 13:59 - Notes Notes: PHYSICAL EXAMINATION: GENERAL: Well-appearing, well-nourished and in no acute distress. HEAD: Atraumatic, normocephalic. EYES: Pupils equal round and reactive to light, extraocular movements intact, sclera anicteric, conjunctiva are normal. ENT: Nares patent, oropharynx clear without exudates. Moist mucous membranes. NECK: Normal range of motion, supple without lymphadenopathy LUNGS: Breath sounds clear to auscultation bilaterally and equal. No wheezes rales or rhonchi. HEART: Regular rate and rhythm without murmurs ABDOMEN: Soft, nontender, nondistended abdomen. No guarding, no rebound. No masses appreciated. Genitourinary: Prostate palpated and is not on boggy and nontender. Musculoskeletal: Normal range of motion, no pitting or edema. No cyanosis. NEUROLOGICAL: Cranial nerves grossly intact. Normal speech, normal gait. Normal sensory, motor exams PSYCH: Normal mood, normal affect. SKIN: Warm, Dry, normal turgor, no rashes or lesions noted. Course - Re-evaluation Re-evalutation: 07/11/18 18:08 Labs as recorded. Patient has a leukocytosis with a white blood count of 18. Patient also has evidence of infection in his urine. Positive nitrites, positi ve blood, greater than 182 white blood cells and large leukocyte esterase. Added on a GC chlamydia test although patient reports no concern for STDs. Rectal exam was done and reveals a soft, nontender and non-boggy prostate. Patient being sent for a CT of the abdomen pelvis without IV or oral contrast to evaluate for renal stones. No evidence of renal stones on CT scan. Patient will be discharged home on Cipro. Discussed ED return precautions. Patient verbalizes understanding of same. Follow-up with PCP and urology. - Vital Signs Vital signs: Temp Pulse Resp BP Pulse Ox 98.3 F 98 17 144/91 H 99 07/11/18 20:01 07/11/18 20:01 07/11/18 20:01 07/11/18 20:01 07/11/18 20:01 - Laboratory Result Diagrams: 07/11/18 14:44 07/11/18 14:44 Laboratory results interpreted by me: 07/11/18 07/11/18 07/11/18 14:44 14:44 14:44 WBC 18.6 H RDW 15.4 H Seg Neutrophils % 85.3 H Lymphocytes % 5.8 L Absolute Neutrophils 15.9 H Absolute Monocytes 1.6 H Glucose 119 H Total Bilirubin 2.2 H Albumin 5.1 H Urine Protein 30 H Urine Blood LARGE H Urine Nitrite POSITIVE H Ur Leukocyte Esterase LARGE H Discharge - Discharge Clinical Impression: Urinary tract infection Condition: Stable Disposition: HOME, SELF-CARE Additional Instructions: URINARY TRACT INFECTION: Your evaluation indicates that you have a urinary tract infection. This is due to germs growing in the bladder. This is a common problem. This infection usually responds quickly to antibiotics. Your antibiotic should be taken exactly as prescribed. Drink plenty of fluids -- three to four quarts a day. Occasionally, a bladder anesthetic will be prescribed to help stop the feeling of urgency until the antibiotic has a chance to clear the infection. This may cause your urine to be dark orange. Certain urine infections require a culture. If the doctor obtained a culture, the results will be back in two days. You should call to see if a change in treatment is needed. A repeat urinalysis after you finish treatment is often recommended. The physician will let you know if further testing is required. Call the doctor if you develop fever, chills, flank pain, inability to urinate, or blood in the urine. CIPROFLOXACIN: You have been given an antibacterial agent, ciprofloxacin (Cipro). This medicine is not related to the penicillins, sulfas, cephalosporins, or tetracyclines. It is often given to patients who are allergic to these drugs. It has been chosen for you either because other drugs are not appropriate, or because of the nature of your problem. Cipro should not be taken with antacids, as these can decrease its effectiveness. It can be taken without regard to meals. CIPRO SHOULD NOT BE TAKEN BY CHILDREN, NURSING WOMEN, OR WOMEN. Although Cipro is usually well-tolerated, common side effects can include nausea and diarrhea. Contact your doctor if you experience any unusual symptoms while on this medication, such as joint pain or swelling, shortness of breath, wheezing, faintness, or hives. Possible Prostatitis You may have prostatitis, an infection in the prostate gland. This gland lies just below the bladder. Bacteria enter the prostate gland from the urine. Symptoms of prostatitis may include pelvic aching, fever, pain on urination, and discharge from the penis. Prostatitis is treated with antibiotics. A follow-up exam is usually required to insure that the infection has resolved. Some cases of prostatitis become chronic. It's important that you take the medication as prescribed. Drink plenty of fluids. Sexual intercourse is allowed. This is not a venereal disease, and is not contagious to your spouse. Call the doctor or return for re-examination at once if you feel more ill, develop high fever and shaking chills, have increasing pain, or if you are unable to pass your urine. Please take antibiotics as prescribed. It is very important that you finish the entire course even if your symptoms resolve. Urine culture has been sent, a nd if there is any abnormality someone will call you in the next 48-72 hours. Please take either acetaminophen or ibuprofen for any pain or fever. Drink plenty of fluids. Follow-up with your primary care provider in the next 2-3 days for a follow-up. I have also given you contact information for urologist here in [place]. It is important to stay ahead of this infection and have close follow-up. Please return to the emergency department if you develop abdominal pain, persistent vomiting, fever that is unrelieved with Tylenol or ibuprofen or any other symptom that is concerning to you. We will be happy to reevaluate you at any time. Prescriptions: RX: Ciprofloxacin HCl [Cipro 500 mg Tablet] 500 mg PO BID #28 tablet [facility]errals: [facility] [[facility]] - Follow up as needed IVANA SUNSHINE MD [NO LOCAL MD] - Follow up as needed
[2018-07-11] MEDS ORDERED: CEFTRIAXONE 1 GM/D5W RTU 1 GM/50 ML RTUPB IV ONE ×2 (18:03→18:06)
--- NOTE | 2018-07-11 18:59 | RADIOLOGY REPORT (SQ) ---
EXAM DESCRIPTION: CT ABD/PELVIS NO ORAL OR IV COMPLETED DATE/TIME: 07/11/2018 6:44 pm REASON FOR STUDY: left flank pain, leukocytosis COMPARISON: None. TECHNIQUE: CT scan of the abdomen and pelvis performed without intravenous or oral contrast. Images reviewed with lung, soft tissue, and bone windows. Reconstructed coronal and sagittal MPR images revi ewed. All images stored on PACS. All CT scanners at this facility use dose modulation, iterative reconstruction, and/or weight based d osing when appropriate to reduce radiation dose to as low as reasonably achievable (ALARA). [facility]: Dose Right [facility]: CareDose [facility]: Dose Right [facility]: Teradose 4D [facility]: Smart Result[employer] RADIATION DOSE: CT Rad equipment meets quality standard of care and radiation dose reduction techniq ues were employed. CTDIvol: 7.2 mGy. DLP: 449 mGy-cm.mGy. LIMITATIONS: None. FINDINGS: LOWER CHEST: No significant findings. No nodules or infiltrates. NON-CONTRASTED LIVER, SPLEEN, ADRENALS: Evaluation limited by lack of IV contrast. No identified sig nificant masses. PANCREAS: No masses. No peripancreatic inflammatory changes. GALLBLADDER: No identified stones by CT criteria. No inflammatory changes to suggest cholecystitis. RIGHT KIDNEY AND URETER: No suspicious masses. Assessment limited by lack of IV contrast. No signif icant calcifications. No hydronephrosis or hydroureter. LEFT KIDNEY AND URETER: No suspicious masses. Assessment limited by lack of IV contrast. No signifi cant calcifications. No hydronephrosis or hydroureter. AORTA AND RETROPERITONEUM: No aneurysm. Minimal calcified plaque of the abdominal aorta. No retrope ritoneal masses or adenopathy. BOWEL AND PERITONEAL CAVITY: No dilated loops of bowel. No obvious masses or inflammatory changes. No free fluid. No intraperitoneal free air. APPENDIX: Normal. PELVIS, BLADDER, AND ABDOMINAL WALL:No abnormal masses. No free fluid. Bladder normal. BONES: No significant findings. OTHER: No other significant finding. IMPRESSION: NO SIGNIFICANT OR ACUTE PROCESS IN THE ABDOMEN OR PELVIS. COMMENT: Quality ID # 436: Final reports with documentation of one or more dose reduction techniques (e.g., Automated exposure control, adjustment of the mA and/or kV according to patient size, use of iterative reconstruction technique) TECHNICAL DOCUMENTATION: JOB ID: [id number] [employer]- All Rights Reserved Reading location - IP/workstation name: [email or web address]
[2018-07-11] MEDS ORDERED: CIPROFLOXACIN HCL 500 MG TABLET PO ONE (19:30)
[2018-07-11 20:44] LABS: CHLAM PCR NOT DETECTED (NOT DETECT); GON PCR NOT DETECTED (NOT DETECT)
== END 2018-07-11 20:01 | disposition home or self-care (01) ==
LOC: ER 13:45
DX: N39.0 Urinary tract infection, site not specified (principal); R25.2 Cramp and spasm; R10.9 Unspecified abdominal pain; R50.9 Fever, unspecified; R35.0 Frequency of micturition; R32 Unspecified urinary incontinence; I10 Essential (primary) hypertension
CPT/HCPCS: 99284; 96361; 96365; 36415; 87086; 85025; 87088; 80053; 81001; 87186; 87491; 87591; 83605; 74176; J7040; J0696

== ENCOUNTER 2018-12-02 14:53 | Emergency (ER) | payer OTHER ==
[2018-12-02] MEDS ORDERED: HYDROMORPHONE HCL INJ/PF 2 MG/ML AMPULE IM ONE (17:02)
--- NOTE | 2018-12-02 17:06 | ER Document Report ---
ED Medical Screen (RME) - General Chief Complaint: Neck Injury Stated Complaint: NECK PAIN Time Seen by Provider: 12/02/18 16:57 Primary Care Provider: TREY,ADELA [Primary Care Provider] - Follow up as needed Mode of Arrival: Ambulatory Information source: Patient Notes: Patient is a 58-year-old male presenting to the emergency department chief complaints of neck pain. Patient reports he had a cervical surgery done on Friday at the [facility] in [place]. He states yesterday he fell. He states he fell from a standing position onto the concrete ground. He denies striking his head. He reports that he usually takes Valium and Percocet at home for the postop pain he states that the pain is out of control and these medications are not helping. He is concerned that he did damage to the surgery with the fall. Exam: Covered surgical sites to anterior neck. Mild tenderness to palpation to posterior C-spine. C-collar is in place. I have greeted and performed a rapid initial assessment of this patient. A comprehensive ED assessment and evaluation of the patient, analysis of test results and completion of the medical decision making process will be conducted by additional ED providers. I have specifically instructed the patient or family members with the patient to immediately return to any nursing staff should anything change in the patient's condition or with their chief complaint. This medical record was dictated with voice recognizing software. There may be grammatical, syntax errors that are unintended. TRAVEL OUTSIDE OF THE [place] IN LAST 30 DAYS: No - Related Data Allergies/Adverse Reactions: No Known Allergies Allergy (Verified 12/02/18 15:15) Past Medical History - Social History Chew tobacco use (# tins/day): No Frequency of alcohol use: None Drug Abuse: None - Past Medical History Cardiac Medical History: Reports: Hx Hypertension Denies: Hx Coronary Artery Disease, Hx Heart Attack Pulmonary Medical History: Denies: Hx Asthma, Hx Bronchitis, Hx COPD, Hx Pneumonia Neurological Medical History: Reports: Hx Cerebrovascular Accident. Denies: Hx Seizures Renal/ Medical History: Denies: Hx Peritoneal Dialysis Musculoskeltal Medical History: Reports Hx Arthritis, Reports Hx Gout Psychiatric Medical History: Reports: Hx Post Traumatic Stress Disorder Traumatic Medical History: Reports: Hx Fractures - foot Past Surgical History: Reports: Hx Orthopedic Surgery - right hand, neck - Immunizations Immunizations up to date: Yes Hx Diphtheria, Pertussis, Tetanus Vaccination: Yes History of Influenza Vaccine for 02/2017 - 07/2017 Season: No Physical Exam - Vital signs Vitals: Temp Pulse Resp BP Pulse Ox 98.4 F 102 H 18 137/94 H 98 12/02/18 15:30 12/02/18 15:30 12/02/18 15:30 12/02/18 15:30 12/02/18 15:30 Course - Vital Signs Vital signs: Temp Pulse Resp BP Pulse Ox 98.4 F 102 H 18 137/94 H 98 12/02/18 15:30 12/02/18 15:30 12/02/18 15:30 12/02/18 15:30 12/02/18 15:30 Doctor's Discharge - Discharge [facility]errals: [facility] [[facility]] - Follow up as needed
--- NOTE | 2018-12-02 17:30 | RADIOLOGY REPORT (SQ) ---
EXAM DESCRIPTION: CT CERVICAL SPINE WITHOUT COMPLETED DATE/TIME: 12/02/2018 5:15 pm REASON FOR STUDY: recent surgery, fall COMPARISON: None. TECHNIQUE: Axial images acquired through the cervical spine without intravenous contrast. Images re viewed with lung, soft tissue and bone windows. Reconstructed coronal and sagittal MPR images review ed. Images stored on PACS. All CT scanners at this facility use dose modulation, iterative reconstruction, and/or weight based d osing when appropriate to reduce radiation dose to as low as reasonably achievable (ALARA). [facility]: Dose Right [facility]: CareDose [facility]: Dose Right [facility]: Teradose 4D [facility]: [employer] RADIATION DOSE: CT Rad equipment meets quality standard of care and radiation dose reduction techniq ues were employed. CTDIvol: 20.5 mGy. DLP: 527 mGy-cm. mGy. LIMITATIONS: None. FINDINGS: ALIGNMENT: Anatomic. MINERALIZATION: Normal. VERTEBRAL BODIES: No fractures or dislocation. DISCS: Multilevel disc space narrowing with osteophytes. FACETS, LATERAL MASSES, POSTERIOR ELEMENTS: Facet arthropathy. No fractures. No dislocation. No ac [place] findings. HARDWARE: Anterior plate and screw fixation hardware from C3 to C6, intact. VISUALIZED RIBS: No fractures. LUNG APICES AND SOFT TISSUES: No significant or acute findings. OTHER: No other significant finding. IMPRESSION: CHRONIC DEGENERATIVE CHANGES. NO ACUTE FINDINGS. TECHNICAL DOCUMENTATION: JOB ID: [id number] Quality ID # [id number]: Final reports with documentation of one or more dose reduction techniques (e.g., Au tomated exposure control, adjustment of the mA and/or kV according to patient size, use of iterative reconstruction technique) 2010 [employer]- All Rights Reserved Reading location - IP/workstation name: [email or web address]
--- NOTE | 2018-12-02 18:22 | ER Document Report ---
ED General - General Chief Complaint: Neck Injury Stated Complaint: NECK PAIN Time Seen by Provider: 12/02/18 16:57 Primary Care Provider: [place],[place] [Primary Care Provider] - Follow up as needed Mode of Arrival: Ambulatory Notes: Patient is a 58-year-old male presenting to the emergency department chief complaints of neck pain. Patient reports he had a cervical surgery done on Friday at the [facility] in [place]. He states yesterday he fell. He states he fell from a standing position onto the concrete ground. He denies striking his head. He reports that he usually takes Valium and Percocet at home for the postop pain he states that the pain is out of control and these medications are not helping. He is concerned that he did damage to the surgery with the fall. TRAVEL OUTSIDE OF THE [place] IN LAST 30 DAYS: No - Related Data Allergies/Adverse Reactions: No Known Allergies Allergy (Verified 12/02/18 15:15) Past Medical History - General Information source: Patient - Social History Smoking Status: Never Smoker Chew tobacco use (# tins/day): No Frequency of alcohol use: None Drug Abuse: None Family History: DM, Hypertension Patient has suicidal ideation: No Patient has homicidal ideation: No - Past Medical History Cardiac Medical History: Reports: Hx Hypertension Denies: Hx Coronary Artery Disease, Hx Heart Attack Pulmonary Medical History: Denies: Hx Asthma, Hx Bronchitis, Hx COPD, Hx Pneumonia Neurological Medical History: Reports: Hx Cerebrovascular Accident. Denies: Hx Seizures Renal/ Medical History: Denies: Hx Peritoneal Dialysis Musculoskeletal Medical History: Reports Hx Arthritis, Reports Hx Gout Psychiatric Medical History: Reports: Hx Post Traumatic Stress Disorder Traumatic Medical History: Reports: Hx Fractures - foot Past Surgical History: Reports: Hx Orthopedic Surgery - right hand, neck - Immunizations Immunizations up to date: Yes Hx Diphtheria, Pertussis, Tetanus Vaccination: Yes Review of Systems - Review of Systems Constitutional: No symptoms reported EENT: No symptoms reported Cardiovascular: No symptoms reported Respiratory: No symptoms reported Gastrointestinal: No symptoms reported Genitourinary: No symptoms reported Male Genitourinary: No symptoms reported Musculoskeletal: See HPI Skin: No symptoms reported Hematologic/Lymphatic: No symptoms reported Neurological/Psychological: No symptoms reported Physical Exam - Vital signs Vitals: Temp Pulse Resp BP Pulse Ox 98.4 F 102 H 18 137/94 H 98 12/02/18 15:30 12/02/18 15:30 12/02/18 15:30 12/02/18 15:30 12/02/18 15:30 - Notes Notes: PHYSICAL EXAMINATION: GENERAL: Well-appearing, well-nourished and in no acute distress. HEAD: Atraumatic, normocephalic. EYES: Pupils equal round and reactive to light, extraocular movements intact, sclera anicteric, conjunctiva are normal. ENT: Nares patent, oropharynx clear without exudates. Moist mucous membranes. NECK: Normal range of motion, supple without lymphadenopathy LUNGS: Breath sounds clear to auscultation bilaterally and equal. No wheezes rales or rhonchi. HEART: Regular rate and rhythm without murmurs ABDOMEN: Soft, nontender, nondistended abdomen. No guarding, no rebound. No masses appreciated. Musculoskeletal: Tenderness to palpation over the C-spine. No step-off or deformity noted. NEUROLOGICAL: Cranial nerves grossly intact. Normal speech, normal gait. Normal sensory, motor exams PSYCH: Normal mood, normal affect. SKIN: Dressings in place over presumed surgical sites on right lateral and anterior neck. Course - Re-evaluation Re-evalutation: Cervical Spine CT 12/02/18 17:03 IMPRESSION: CHRONIC DEGENERATIVE CHANGES. NO ACUTE FINDINGS. C-collar removed. No acute injury to neck based upon recent CT. Encourage patient to follow-up closely with his surgeon, call him and let him know that he fell, was seen in the emergency department and had a negative CT done. Patient verbalized understanding and agreement with this plan. The patient's emergency department workup and current diagnosis were explained to the patient and or family. Follow-up instructions were provided. Medications if prescribed were discussed. Instructions for when to return to the emergency department including specific worrisome symptoms were discussed with t he patient and/or family. - Vital Signs Vital signs: Temp Pulse Resp BP Pulse Ox 99.1 F 112 H 16 152/95 H 100 12/02/18 18:26 12/02/18 18:26 12/02/18 18:26 12/02/18 18:26 12/02/18 18:26 Discharge - Discharge Clinical Impression: Neck pain without injury Condition: Stable Disposition: HOME, SELF-CARE Additional Instructions: The CAT scan of your neck showed no acute abnormality. Please continue to take the pain medication and muscle relaxers as prescribed by your surgeon. Call them tomorrow to schedule a follow-up. Let them know you were seen in the emergency department and you had a CAT scan done today which showed no acute findings. A copy of this CAT scan has been provided in your discharge papers. Please return to the emergency department for any new or worsening symptoms. [facility]errals: [facility] [[facility]] - Follow up as needed
[2018-12-02 18:37] VITALS: BP 152/95
== END 2018-12-02 18:37 | disposition home or self-care (01) ==
LOC: ER 14:53
DX: M54.2 Cervicalgia (principal); I10 Essential (primary) hypertension
CPT/HCPCS: 99283; 96372; 72125; L0120; J1170

== ENCOUNTER 2018-12-14 11:49 | Emergency (ER) | payer OTHER ==
--- NOTE | 2018-12-14 13:09 | ER Document Report ---
HPI - HPI Patient complains to provider of: Unable to use R arm Time Seen by Provider: 12/14/18 12:37 Pain Level: Denies Context: 58-year-old male with recent C-spine fusion and visit to the emergency department here on 12/01/2018 for pain control presents to the emergency department with chief complaint of inability to use his right arm. He states that his pain was not well controlled so he came here and said he "got a shot of Dilaudid" and ever since then has been unable to abduct, flex his right shoulder and has been unable to flex his bicep. Patient states he is completely pain- free, sensory is normal. Patient states he can supinate and pronate. No other complaints - REPRODUCTIVE Reproductive: DENIES: : - MUSCULOSKELETAL Musculoskeletal: REPORTS: Extremity pain - RUE Past Medical History - Social History Smoking Status: Never Smoker Frequency of alcohol use: None Drug Abuse: None Family History: DM, Hypertension Patient has suicidal ideation: No Patient has homicidal ideation: No - Past Medical History Cardiac Medical History: Reports: Hx Hypertension Denies: Hx Coronary Artery Disease, Hx Heart Attack Pulmonary Medical History: Denies: Hx Asthma, Hx Bronchitis, Hx COPD, Hx Pneumonia Neurological Medical History: Reports: Hx Cerebrovascular Accident. Denies: Hx Seizures Renal/ Medical History: Denies: Hx Peritoneal Dialysis Musculoskeletal Medical History: Reports Hx Arthritis, Reports Hx Gout Psychiatric Medical History: Reports: Hx Post Traumatic Stress Disorder Traumatic Medical History: Reports: Hx Fractures - foot Past Surgical History: Reports: Hx Orthopedic Surgery - right hand, neck - Immunizations Immunizations up to date: Yes Hx Diphtheria, Pertussis, Tetanus Vaccination: Yes Vertical Provider Document - CONSTITUTIONAL Notes: PHYSICAL EXAMINATION: Reviewed vital signs and charting by RN GENERAL: Alert, interacts well. No acute distress. HEAD: Normocephalic, atraumatic. EYES: Pupils equal and round. Extraocular movements intact. ENT: Oral mucosa moist, tongue midline. NECK: Full range of motion. Trachea midline. EXTREMITIES: Full passive range of motion with the right arm to include shoulder, elbow, wrist and fingers, patient is unable to actively flex or abduct his right deltoid, and is unable to flex his bicep. Patient with sensation intact to light touch C3-C7. Patient laid on stretcher and patient able to flex and extend the wrist anterior to posterior and I was able to palpate bicep muscle activity, I held patient's arm above his head and had him hold it in place while I moved it around and there was a deltoid muscle activity. No edema, No cyanosis. PSYCH: Normal affect, normal mood. SKIN: Warm, dry, normal turgor. No rashes or lesions noted. - INFECTION CONTROL TRAVEL OUTSIDE OF THE [place] IN LAST 30 DAYS: No Course - Re-evaluation Re-evalutation: 12/14/18 13:07 Peculiar presentation as patient is unable to use his right shoulder or bicep. Briefly discussed with attending physician. I laid patient on stretcher and there was deltoid muscle activity and bicep muscle activity when provoking him with certain movements. Strength was not 5/5 and patient could not hold his arm above his head. I explained to patient that the vessels and innervation are on the underside of his arm and is an unlikely that related to his shot and recommendation is to place in a sling [facility]. Patient has normal sensation to light touch. 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 At this time there is no concerning, emergent need to consult orthopedics and he is stable to discharge and follow-up with his surgeon. - Vital Signs Vital signs: Temp Pulse Resp BP Pulse Ox 98.5 F 82 16 147/82 H 98 12/14/18 11:54 12/14/18 11:54 12/14/18 11:54 12/14/18 11:54 12/14/18 11:54 Procedures - Immobilization Right Arm Pre-Proc Neuro Vasc Exam: Normal Immobilizer type: Sling Post-Proc Neuro Vasc Exam: Normal Discharge - Discharge Clinical Impression: Shoulder weakness Condition: Stable Disposition: HOME, SELF-CARE Additional Instructions: Seen in the emergency department this afternoon for right shoulder weakness and inability to use it. After performing some additional testing there was some muscle activity noted although clearly it is not normal. Because your sensation is intact this is also very reassuring. It is unclear why this is happening but it is important that you call and follow-up with your surgeon to discuss if nerve conduction testing or any additional testing needs to get done. If you develop fevers or chills, intractable nausea or vomiting, your right arm completely swells up, your fingertips turn purple or black, or you have any other concerning symptoms please return to the emergency department. Referrals: [facility] [Primary [facility] Provider] - Follow up as needed
[2018-12-14 13:21] VITALS: BP 135/96
== END 2018-12-14 13:21 | disposition home or self-care (01) ==
LOC: ER 11:49
DX: M62.81 Muscle weakness (generalized) (principal); R29.898 Other symptoms and signs involving the musculoskeletal system; I10 Essential (primary) hypertension
CPT/HCPCS: 99283